=== PATIENT | female | born 1950 | race Caucasian/White ===

== ENCOUNTER 2023-09-15 20:50 | Observation (INO) | payer MEDICARE, SELFPAY ==
[2023-09-15] VITALS (16 sets, daily range): BP systolic 200–203; BP diastolic 88–100; PULSE 56–79; RESP 16–18; TEMP 36.4–36.5; O2SAT 96–100; BMI 23.5
--- NOTE | 2023-09-15 21:23 | ED.DIZZY ---
HPI - Dizziness General Time Seen by Provider: 21:23 Date Seen: 09/15/23 Chief Complaint: Dizziness/Vertigo Stated Complaint: Dizziness, nausea Time Seen by Provider: 09/15/23 21:12 Source: patient and RN notes reviewed Mode of arrival: ambulatory Limitations: no limitations History of Present Illness HPI Narrative: Simón is a very pleasant 73-year-old female with a history of hypothyroidism otherwise healthy who comes to the [place] [facility] [facility] for evaluation regarding nausea and feeling like the move room is moving around her. Corrie notes that she awoke this morning with symptoms of dizziness that she is having a hard time describing. She denies a spinning sensation and she denies the room spinning but states that she feels like she is moving. She notes that this lasted for approximately 2 hours this morning and went away and state away until this evening at approximately 0830. In regards to this morning she was unable to tell me if she got out of bed feeling that way or that nausea and dizziness happened after she had been up. She denied any visual changes chest pain shortness of breath. She slept for 2 hours and had resolution of her symptoms and decided to drive down to [place] for the [employer] festival that was occurring tonight. At 0815 patient had the sudden onset of shakiness feeling sweaty nausea and felt like she was moving. Again, she is having a hard time articulating what she is feeling as dizziness. She notes that she cannot move her head or at returns. Unfortunately at rest she still has the symptoms although not quite as severe. She denies any numbness or tingling that is new. She states that her great toes bilaterally have been somewhat numb for the past 6 months to a year. This is not new. She had she did not vomit but feels very nauseated. She notes that she did have a loose stool earlier this morning but it did not continue. Corrie notes that she did drive herself here this evening. She notes that she had had to just stare straight ahead and just listen to her GPS tell her what to do. She recognizes that this may not have been good judgment. She notes that she is having a hard time walking. Corrie did take a COVID test this morning not because she is been ill but because she has a positive exposure to a friend who had COVID. She denies sore throat runny nose cough cold congestion. Patient denies any recent trauma, anticoagulation use, this has never happened to her in the past. Related Data Home Medications ?Medication ?Instructions ?Recorded ?Confirmed aspirin 81 mg capsule 81 mg PO DAILY 09/15/23 09/15/23 fluoxetine .ROUTE 09/15/23 levothyroxine .ROUTE 09/15/23 Allergies Allergy/AdvReac Type Severity Reaction Status Date / Time No Known Drug Allergies Allergy Verified 09/15/23 21:46 PFSH PFSH Social History Smoking Status: Former smoker What tobacco products do you use: cigarettes How often do you have a drink containing alcohol: never AUDIT-C Alcohol total score: 0 Non-prescribed substance use: denies use Exam Narrative: Exam Narrative: Corrie is lying in a semi recumbent position in room 5 when I enter. She is moving her eyes to look at me only stating that if she moves her head it is much worse. She is very anxious. As I am asking her questions there was quite a delay in her response. However when she does respond the answers are appropriate, of normal speed and content. Her EOM is full and I do not note any nystagmus at rest or in the extremes of view. Pupils are equal round and reactive. Face symmetrical with eyebrow raise smile and tongue is midline. Neck is supple without lymphadenopathy. Heart with a regular rate and rhythm. Lungs are clear bilaterally. Abdomen soft. Moving all extremities. Able to lift all limbs off the bed. NIH SS 0. Const: Vital Signs, click to edit/add: Vital Signs - 24 hr 09/15/23 21:05 09/15/23 21:14 09/15/23 21:15 Temperature 97.6 F Pulse Rate 58 L 57 L Pulse Rate [Pulse Oximeter] 62 Respiratory Rate 18 Blood Pressure Blood Pressure [Ri ght Upper Arm] 201/94 H Pulse Oximetry 100 100 100 Oxygen Delivery Me thod Room Air 09/15/23 21:30 09/15/23 21:57 09/15/23 22:00 Temperature Pulse Rate 56 L 62 64 Pulse Rate [Pulse Oximeter] Respiratory Rate Blood Pressure 200/88 H Blood Pressure [Ri ght Upper Arm] Pulse Oximetry 100 99 99 Oxygen Delivery Me thod 09/15/23 22:01 09/15/23 22:15 09/15/23 22:30 Temperature Pulse Rate 64 63 65 Pulse Rate [Pulse Oximeter] Respiratory Rate Blood Pressure Blood Pressure [Ri ght Upper Arm] Pulse Oximetry 98 97 99 Oxygen Delivery Me thod 09/15/23 22:38 09/15/23 22:43 09/15/23 22:45 Temperature Pulse Rate 79 64 Pulse Rate [Pulse Oximeter] Respiratory Rate Blood Pressure 203/90 H Blood Pressure [Ri ght Upper Arm] Pulse Oximetry 97 99 Oxygen Delivery Me thod Documenting provider has reviewed patient's vital signs: yes Course Course ED Course: Patient presents with sudden onset of nausea, dizziness difficult to describe but not peer vertigo, persistent dizziness at rest at approximately 2015 hours. This is in the setting of high blood pressure of 201/94. Patient has no past history of stroke, atrial fibrillation, alcohol use or tobacco use. At this time must recognize that patient had similar type occurrence this morning lasting 2 hours but with complete resolution throughout the rest of the day until this evening. Will obtain CT/CTA, call stroke code because of the persistent dizziness at rest as well as the sudden onset. IV will be established, normal saline 500 mL bolus, Benadryl 12.5 mg IV will be given. Will also check EKG, troponin, place patient on monitoring coordinator, draw CBC, comprehensive panel, CRP and obtain urinalysis. Will also obtain COVID test. Differential diagnosis includes but is not limited to benign positional vertigo, stroke, labyrinthitis, vestibular dysfunction, cardiac arrhythmia, COVID,. Reevaluation(s) Reevaluation #1: Patient noted to be improved after fluids and Benadryl. She is able to move her had although slowly. Her responses seen faster and continue to be appropriate. I am able to examine her a little more closely. She does have 1 beat of nystagmus in the extremes of view but nothing at rest. Consultations Consultation #1: Had the pleasure of speaking with Dr. Zhane Richter. At this time symptoms are not consistent with acute stroke especially with the symptoms earlier this morning but given the sudden onset persisting symptoms at rest she has recommended CT/CTA this evening and MRI tomorrow morning. Would also recommend aspirin while awaiting MRI as long as results would warrant that. Vital Signs Vital signs: Initial Vital Signs Temperature 97.6 F 09/15/23 21:05 Temperature Source Temporal Artery Scan 09/15/23 21:05 Pulse Rate 62 09/15/23 21:05 Respiratory Rate 18 09/15/23 21:05 Blood Pressure 201/94 H 09/15/23 21:05 Blood Pressure Mean 129 H 09/15/23 21:05 Blood Pressure Position Sitting 09/15/23 21:05 Pulse Oximetry 100 09/15/23 21:05 Oxygen Delivery Method Room Air 09/15/23 21:05 Vital Signs Temperature 97.6 F 09/15/23 21:05 Pulse Rate 62 09/15/23 21:05 Respiratory Rate 18 09/15/23 21:05 Blood Pressure 201/94 H 09/15/23 21:05 Pulse Oximetry 100 09/15/23 21:05 Oxygen Delivery Method Room Air 09/15/23 21:05 Temperature 97.6 F 09/15/23 21:05 Pulse Rate 64 09/15/23 22:45 Respiratory Rate 18 09/15/23 21:05 Blood Pressure 203/90 H 09/15/23 22:38 Pulse Oximetry 99 09/15/23 22:45 Oxygen Delivery Method Room Air 09/15/23 21:05 Medications Administered Medications: Generic Name Dose Route Start Last Admin Trade Name Freq PRN Reason Stop Dose Admin Diphenhydramine HCl 12.5 mg 09/15/23 21:36 09/15/23 22:11 Diphenhydramine 50 Mg/Ml Inj IVP 12.5 mg Q6H PRN Administration Discontinued Medications Generic Name Dose Route Start Last Admin Trade Name Freq PRN Reason Stop Dose Admin Sodium Chloride 500 mls @ 500 mls/hr 09/15/23 21:36 09/15/23 22:07 0.9 % Sodium Chloride 500 Ml IV 09/15/23 22:35 500 mls/hr .Q1H ONE Administration MDM - Dizziness MDM Narrative Medical decision making narrative: 1. Dizziness-CT/CTA reassuring with no evidence of abnormality. This most likely represents an inner ear process but given the sudden onset of symptoms, persistent symptoms at rest we did treat this as a stroke code and I did speak with neurologist Dr. Richter. Patient was given baby aspirin this evening and is scheduled for MRI tomorrow morning. According to her chart she does take aspirin daily. Symptoms have improved with fluids and Benadryl. Patient notes that when she got up to use the restroom symptoms were still present but seem to be improved. EKG reassuring with normal sinus rhythm. No evidence of arrhythmia on monitoring coordinator. CRP and white count reassuring. No evidence of anemia electrolyte imbalance or kidney compromise. 2. Hypertension -this time around 200 systolic. Hospitalist is aware and we will continue to monitor at this time. Patient is not experiencing any chest pain, visual changes or shortness of breath. 3. Disposition -admit under the care of Dr. Benton. Plan on MRI tomorrow, this is been ordered for 0900 hours. Note patient was exposed to COVID in a friend. She has no symptoms at this time. COVID test is pending. Addendum: Patient has tested negative for COVID. Lab Data Attestation: I reviewed the patient's lab results. Labs: Lab Results 09/15/23 09/15/23 Range/Units 21:46 21:47 WBC 4.59 (4.50-11.00) K/uL RBC 4.01 (4.00-5.20) m/uL Hgb 12.1 (12.0-16.0) gm/dL Hct 37.5 (33.0-51.0) % MCV 94 (80-100) fL MCH 30 (26-34) pg MCHC 32 (32-36) gm/dL RDW Coeff of Chris 12.5 (11.5-15.5) % Plt Count 232 (140-440) K/uL Neut % (Auto) 55.8 (42.0-72.0) % Lymph % (Auto) 27.2 (20-44) % Wilson % (Auto) 10.2 (0.0-11.0) % Eos % (Auto) 5.0 (0.0-7.0) % Baso % (Auto) 1.1 (0.0-3.0) % Neut # (Auto) 2.56 (1.7-7.0) K/uL Lymph # (Auto) 1.25 (0.90-2.90) K/uL Wilson # (Auto) 0.50 (0.00-0.90) K/UL Eos # (Auto) 0.23 (0.00-0.50) K/uL Baso # (Auto) 0.05 (0.00-0.30) K/uL Abs Immat Gran (auto) 0.03 (0.00-0.30) K/uL Imm/Tot Granulo (auto) 0.7 % Sodium 135 (135-149) mmol/L Potassium 3.8 (3.6-5.1) mmol/L Chloride 106 (96-114) mmol/L Carbon Dioxide 25 (20-32) mmol/L Anion Gap 4 L (7-15) mEq/L BUN 15 (7-30) mg/dL Creatinine 0.6 (0.5-1.5) mg/dL Estimated Creat Clear 48.72 Estimated GFR 95 ml/min Glucose 125 H (60-115) mg/dL Calcium 8.9 (8.4-10.6) mg/dL Total Bilirubin 0.1 (0.1-1.5) mg/dL AST 25 (12-35) U/L ALT 15 (4-35) U/L Alkaline Phosphatase 58 (40-150) U/L C-Reactive Protein < 0.5 L (0.5-1.0) mg/dL Total Protein 6.6 (6.0-8.3) g/dL Albumin 4.0 (3.3-5.0) g/dL SARS-CoV-2 (PCR) Negative SARS-CoV-2 (Negative) Influenza Type A (PCR) Negative PCR FLU A (Negative) Influenza Type B (PCR) Negative PCR FLU B (Negative) RSV (PCR) Negative PCR RSV (Negative) Lab Acknowledgement Test Added Imaging Data CT scan - head: Attestation: I have reviewed the pertinent imaging results. My impression: I do not note any acute bleed or space-occupying lesion Radiologist's impression: Brain parenchyma, CSF spaces, and extra-axial spaces: The carlton-white differentiation is normal. No sign of mass, hemorrhage, or midline shift. No hydrocephalus. No extra-axial fluid collection. Skull base and calvarium: The visualized paranasal sinuses demonstrate no acute or significant findings. The mastoid air cells are clear. The visualized orbits are grossly unremarkable. No skull fracture. IMPRESSION: No evidence of an acute intracranial abnormality. Head and neck angio: Attestation: I have reviewed the pertinent imaging results. My impression: CTA Neck: No evidence of dissection or significant stenosis. CTA Brain: No large vessel occlusion, flow limiting stenosis, or large aneurysm. ECG Data Attestation: I personally reviewed and interpreted this ECG as follows: ECG interpretation date: 09/15/23 Interpretation: EKG by my read shows sinus rhythm at a rate of 62. No acute ST or T-wave changes are noted. QT and LA intervals within normal limits. Discharge Plan Discharge Clinical Impression: Dizziness Hypertension Qualifiers: Hypertension type: unspecified Qualified Code(s): I10 - Essential (primary) hypertension Patient Disposition: Admitted As Observation Condition: Improved
--- NOTE | 2023-09-15 21:36 | CRLHL7_ITS ---
For Patients: As a result of the Century Cures Act, medical imaging exams and procedure reports are released immediately into your electronic medical record. You may view this report before your referring provider. If you have questions, please contact your health care provider. INDICATION: Vertigo. TECHNIQUE: CT head without contrast. COMPARISON: None. FINDINGS: Brain parenchyma, CSF spaces, and extra-axial spaces: The carlton-white differentiation is normal. No sign of mass, hemorrhage, or midline shift. No hydrocephalus. No extra-axial fluid collection. Skull base and calvarium: The visualized paranasal sinuses demonstrate no acute or significant findings. The mastoid air cells are clear. The visualized orbits are grossly unremarkable. No skull fracture. IMPRESSION: No evidence of an acute intracranial abnormality. Please note that all CT scans at this facility use dose modulation, iterative reconstruction, and/or weight-based dosing when appropriate to reduce radiation dose to as low as reasonably achievable. Dictated by Jalil Roberts MD @ 09/15/2023 10:17:46 PM (Electronically Signed)
--- NOTE | 2023-09-15 21:36 | CRLHL7_ITS ---
For Patients: As a result of the Century Cures Act, medical imaging exams and procedure reports are released immediately into your electronic medical record. You may view this report before your referring provider. If you have questions, please contact your health care provider. INDICATION: Vertigo. TECHNIQUE: CTA head with contrast bolus tracking, 3D angiographic rendering using maximum intensity projection (MIP) and images permanently archived. FINDINGS: There is normal opacification of the intracranial vasculature. There is no large vessel occlusion. No aneurysm is identified. IMPRESSION: Unremarkable head CTA. Please note that all CT scans at this facility use dose modulation, iterative reconstruction, and/or weight-based dosing when appropriate to reduce radiation dose to as low as reasonably achievable. Dictated by Rashaun Palomo MD @ 09/16/2023 9:58:20 AM (Electronically Signed)
--- NOTE | 2023-09-15 21:36 | CRLHL7_ITS ---
For Patients: As a result of the Century Cures Act, medical imaging exams and procedure reports are released immediately into your electronic medical record. You may view this report before your referring provider. If you have questions, please contact your health care provider. INDICATION: Vertigo. TECHNIQUE: CTA neck with contrast bolus tracking, 3D angiographic rendering using maximum intensity projection (MIP) and images permanently archived. FINDINGS: There is minor carotid atherosclerosis. There is no significant carotid artery stenosis or dissection. There is no significant vertebral artery stenosis or dissection. The soft tissues of the neck are within normal limits. The cervical spine is in normal alignment. Degenerative changes are noted in the cervical spine. IMPRESSION: No significant carotid or vertebral artery stenosis or dissection. Please note that all CT scans at this facility use dose modulation, iterative reconstruction, and/or weight-based dosing when appropriate to reduce radiation dose to as low as reasonably achievable. Dictated by Rashaun Palomo MD @ 09/16/2023 9:59:47 AM (Electronically Signed)
[2023-09-15] MEDS: 0.9 % SODIUM CHLORIDE 500 ML 500 ML IV (22:07)
[2023-09-15] MEDS: diphenhydrAMINE 50 MG/ML inj 12.5 MG IVP (22:11)
[2023-09-15 22:15] LABS: Chloride* 106 mmol/L (96-114)
[2023-09-15 22:16] LABS: Potassium* 3.8 mmol/L (3.6-5.1); Sodium* 135 mmol/L (135-149)
[2023-09-15 22:18] LABS: Creatinine* 0.6 mg/dL (0.5-1.5); Est. Creatinine Clearance* 48.72; Estimated Glomerular Filt Rate 95 ml/min
[2023-09-15 22:19] LABS: Alanine Aminotransferase* 15 U/L (4-35); Alkaline Phosphatase* 58 U/L (40-150); Anion Gap 4 mEq/L (7-15); Aspartate Amino Transferase* 25 U/L (12-35); Bilirubin Total* 0.1 mg/dL (0.1-1.5); Blood Urea Nitrogen* 15 mg/dL (7-30); Calcium* 8.9 mg/dL (8.4-10.6); Carbon Dioxide* 25 mmol/L (20-32); Glucose* 125 mg/dL (60-115); Total Protein* 6.6 g/dL (6.0-8.3)
[2023-09-15 22:29] LABS: Basophils Absolute Auto 0.05 K/uL (0.00-0.30); Basophils Percent Auto 1.1 % (0.0-3.0); C Reactive Protein* < 0.5 mg/dL (0.5-1.0); Eosinophils Absolute Auto 0.23 K/uL (0.00-0.50); Hematocrit 37.5 % (33.0-51.0); Hemoglobin* 12.1 gm/dL (12.0-16.0); Immature Granulocytes Abs Auto 0.03 K/uL (0.00-0.30); Immature Granulocytes Pct Auto 0.7 %; Lymphocytes Absolute Auto 1.25 K/uL (0.90-2.90); Lymphocytes Percent Auto 27.2 % (20-44); Mean Corpuscular HGB Conc 32 gm/dL (32-36); Mean Corpuscular Hemoglobin 30 pg (26-34); Mean Corpuscular Volume 94 fL (80-100); Monocytes Percent Auto 10.2 % (0.0-11.0); Neutrophils Absolute Auto 2.56 K/uL (1.7-7.0); Neutrophils Percent Auto 55.8 % (42.0-72.0); Platelet Count* 232 K/uL (140-440); RDW Coefficient of Variation % 12.5 % (11.5-15.5); Red Blood Count 4.01 m/uL (4.00-5.20); White Blood Count* 4.59 K/uL (4.50-11.00)
--- OUTSIDE RECORDS SUMMARY | 2023-09-15 22:35 | XMS_ITS | Encounter Summary ---
Author Organization [place] Address [facility] [place] [address] Care Team Providers Care Terminal Press Operator Name Role Phone Chrystal Azul MD Primary Care Provider [phone] Chantel Wheatley BAND SPLICER Unavailable [phone] Jacki Blanchard MD Unavailable Jacki Blanchard MD Unavailable Chrystal Azul MD Unavailable [phone] Fili Graves MD Unavailable Naty Barrera MD Unavailable [phone] Xu Moody MD Unavailable Chrystal Azul MD Unavailable [phone] Fili Graves MD Unavailable Tonia Verde PA-C Unavailable Tonia Verde PA-C Unavailable Chrystal Azul MD Unavailable [phone] Heather Ragland DO Unavailable [phone] Heather Ragland DO Unavailable [phone] Fili Graves MD Unavailable Fili Graves MD Unavailable Ruth Em APRN, CNP Unavailable Tonia Verde PA-C Unavailable Ruth Em CLINICAL THERAPIST INSPECTOR HEATING AND REFRIGERATION Unavailable Katherine Zepeda DNP Primary Care Provider [phone] Katherine Zepeda DNP Unavailable [phone] Sarah Tong DO Unavailable Reason for Visit * Reason Onset Date Comments Panel Management 07/01/2015 Pap Encounter Details Date Type Department Care Team (Late st Contact Info) Description 07/01/[address] [phone] Chrystal Azul MD [facility] [address] [address] Panel Management (Pap) Social History Tobacco Use Types Packs/Day Years Used Date Smoking Tobacco: Former Cigarettes 1 - 11/23/2005 Smokeless Tobacco: Never Alcohol Use Standard Drinks/Week Comments No 0 (1 standard drink = 0.6 oz pur e alcohol) 07/19/01 quit Sex and Gender Information Value Date Recorded Sex Assigned at Female 07/14/2020 10:35 AM CDT Gender Identity Female 12/25/2019 6:50 PM MANAGER COUNTRY Sexual Orientation Not on file documented as of this encounter Miscellaneous Notes * Telephone Encounter - Briana Baker CMA - 07/01/2015 3:56 PM CDT Patient will call clinic back to schedule pap. Briana Baker MA documented in this encounter Plan of Treatment Not on file documented as of this encounter Visit Diagnoses Not on filedocumented in this encounter Additional Health Concerns Infection Onset Date Last Indicated Resolved Time Rule Out COVID-19 08/01/2019 08/01/2019 08/02/2019 11:10 AM CDT Assessment Noted Time PHQ-9 Depression Total Score: 1 02/07/20 15 7:35 AM MANAGER COUNTRY documented as of this encounter Care Teams Terminal Press Operator Relationship Specialty Start Date End Date Chrystal Azul MD [address] [address] PCP - General 08/26/02 08/10/22 Jacki Blanchard MD [address] [address] PCP - Assigned PCP 10/08/17 04/24/18 Katherine Zepeda DNP [address] [address] PCP - General Nurse Practitioner Primary Care 08/11/22 Chantel Wheatley, BAND SPLICER Software Intern 06/17/16 10/31/16 Jacki Blanchard MD [address] [address] Assigned PCP 10/08/17 05/12/18 Chrystal Azul MD [address] [address] Assigned PCP 05/13/18 12/21/19 Fili Graves MD [address] [place] [address] Assigned PCP 01/12/20 01/09/21 Naty Barrera MD [address] [place] [id number] Assigned PCP 12/22/19 01/11/20 Xu Moody MD [address] [place], [place] [address]Y[place] [address] Assigned Sleep Provider 07/26/20 02/25/22 Chrystal Azul MD [address] [address] Assigned PCP 01/10/21 02/27/21 [place] [address] [place] [address] Assigned PCP 02/28/21 07/10/21 Tonia Verde PA-C [address] [place] [address] Physician Window Trimmer Apprentice Urology 05/11/21 Tonia Verde PA-C [address] [place] [address] Assigned OBGYN Provider 05/30/21 04/08/22 Chrystal Azul MD [address] [address] Assigned PCP 07/11/21 11/26/21 Heather Ragland DO [address] [place] [address] Cardiovascular Disease 08/27/21 Heather Ragland DO [address] [place] [address] Assigned Heart and Vascular Provider 10/02/21 04/13/23 Fili Graves MD [address] [facility] [place] [address] Assigned PCP 11/27/21 02/04/22 Fili Graves MD [address] [facility] [place] [address] Assigned PCP 04/16/22 08/19/22 Ruth Em APRN INSPECTOR HEATING AND REFRIGERATION [address] [facility] [address] [facility] [address] [place] [address] Assigned OBGYN Provider 04/09/22 06/17/22 Tonia Verde PA-C [address] [facility] [address] [place] [address] Assigned OBGYN Provider 06/18/22 06/24/22 Ruth Em APRN INSPECTOR HEATING AND REFRIGERATION [address] [facility] [address] [place] [address] Assigned OBGYN Provider 06/25/22 Katherine Zepeda DNP [address] [place] [address] Assigned PCP 08/20/22 01/27/23 Sarah Tong DO [address] [place] [address] Assigned PCP 01/28/23 documented as of this encounter
--- OUTSIDE RECORDS SUMMARY | 2023-09-15 22:35 | XMS_ITS | Encounter Summary ---
Author Organization [facility] Address [address] [place] [address] Care Team Providers Care Two Way Radio Installer Name Role Phone Tonia Verde PA-C Unavailable Heather Ragland DO Unavailable [phone] Heather Ragland DO Unavailable [phone] Ruth Em APRN CHECK WRITER Unavailable Katherine Zepeda DNP Primary Care Provider [phone] Katherine Zepeda DNP Unavailable [phone] Sarah Tong DO Unavailable Reason for Visit * Reason Onset Date Comments Letter for School/Work 11/21/2022 Encounter Details Date Type Department Care Team (Late st Contact Info) Description 11/21/2022 Telephone [facility] [address] [place] [address] Sarah Tong DO [address] [place] [address] Letter for School/Work Social History Tobacco Use Types Packs/Day Years Used Date Smoking Tobacco: Former Cigarettes Q uit: 11/23/1985 Smokeless Tobacco: Never Alcohol Use Standard Drinks/Week Comments No 0 (1 standard drink = 0.6 oz pur e alcohol) 07/19/01 quit PHQ-2 Answer Date Recorded PHQ-2 Score 0 11/15/2022 Adolescent Education Answer Date Record ed Getting School Help Needed Not on file 11/14 Food Insecurity Answer Date Recorded Within the past 12 months, d id you worry that your food would run out before you got money to buy more? No 11/15/2022 Within the past 12 months, d id the food you bought just not last and you didn? t have money to get more? No 11/15/2022 Housing Stability Answer Date Recorded Do you have housing? (Meera velázquez is defined as stable permanent housing and does not include staying ouside in a car, in a tent, in an abandoned building, in an overnight half-way, or couch-surfing.) Yes 11/15/2022 Are you worried about losing your housing? No 11/15/2022 Financial Resource Strain Answer Date R ecorded Within the past 12 months, h ave you or your family members you live with been unable to get utilities (heat, electricity) when it was really needed? No 11/15/2022 Transportation Needs Answer Date Record ed Within the past 12 months, h as lack of transportation kept you from medical appointments, getting your medicines, non-medical meetings or appointments, work, or from getting things that you need? No 11/15/2022 Interpersonal Safety Answer Date Record ed Do you feel physically and e motionally safe where you currently live? Yes 11/15/2022 Within the past 12 months, h ave you been hit, slapped, kicked or otherwise physically hurt by someone? No 11/15/2022 Within the past 12 months, h ave you been humiliated or emotionally abused in other ways by your partner or ex-partner? No 11/15/2022 Sex and Gender Information Value Date Recorded Sex Assigned at Female 07/14/2020 10:35 AM CDT Gender Identity Female 12/25/2019 6:50 PM [employer] Sexual Orientation Not on file COVID-19 Exposure Response Date Recorded In the last 10 days, have yo u been in contact with someone who was confirmed or suspected to have Coronavirus/COVID-19? No / Unsure 11/15/2022 11:40 AM CDT documented as of this encounter Miscellaneous Notes * Telephone Encounter - Sary Sharpe RN - 11/21/2022 3:19 PM CDT LM to inform pt about this letter on [facility] and gave the rest of Dr. Tong's message. MATEO [place] * Telephone Encounter - Sarah Tong DO - 11/21/2022 2:57 PM CDT Absolutely- thank you for the pended letter. Signed. If symptoms not better by the end of this week, I would love to see her again (me or Katherine would be ok) to see if there is something more that we need to do to evaluate her pain. Sarah Tong DO Internal Medicine - Pediatrics Physician [facility] * Telephone Encounter - Sary Sharpe RN - 11/21/2022 2:11 PM CDT 11/15/22 was [address] OV with Dr. Tong. Pended letter. MATEO [place] * Telephone Encounter - Mariya Whitt - 11/21/2022 1:17 PM CDT Patient wondering Dr. Tong could write a letter note for work that patient should stay home for this week. Patient still not recovering and feels that its inappropriate to return to work this week. Patient only works two days a week which is on Monday's and Monday'. Willing to come in for appointment if requires.. Will forward message to provider if any questions please call patient. documented in this encounter Plan of Treatment Not on file documented as of this encounter Visit Diagnoses Not on filedocumented in this encounter Additional Health Concerns Assessment Noted Time PHQ-9 Depression Total Score: 3 11/16/19 11:38 AM CDT documented as of this encounter Care Teams Two Way Radio Installer Relationship Specialty Start Date End Date Katherine Zepeda DNP [address] [facility] [address] [place] [address] PCP - General Nurse Practitioner Primary Care 08/11/22 Tonia Verde PA-C [address] [place] [address] Physician Technical Sales Manager Urology 05/11/21 Hetaher Ragland, DO [address] [place] [id number] Cardiovascular Disease 08/27/21 Heather Ragland DO [address] [place] [address] Assigned Heart and Vascular Provider 10/02/21 04/13/23 Ruth Em APRN CHECK WRITER [address] [place] [id number] Assigned OBGYN Provider 06/25/22 Katherine Zepeda DNP [address] [address] Assigned PCP 08/20/22 01/27/23 Sarah Tong DO [address] [address] Assigned PCP 01/28/23 documented as of this encounter
--- OUTSIDE RECORDS SUMMARY | 2023-09-15 22:35 | XMS_ITS | Clinical Summary ---
Author Organization [place] Address [facility] [place] [address] Care Team Providers Care Equipment Operator Ware[employer] Name Role Phone Tonia Verde PA-C Unavailable Heather Ragland DO Unavailable [phone] Ruth Em APRN SALES SECRETARY Unavailable Katherine Zepeda DNP Primary Care Provider Sarah Tong DO Unavailable Allergies Active Allergy Reactions Criticality Noted Date Comments No Known Allergies 07/25/2003 Medications Medication Sig Dispensed Refills Start Date End Date Status MULTI-VITAMIN OR TABS one tablet daily 0 07/25/2003 Active GLUCOSAMINE CHONDRO COMPLEX 500-400 MG OR TABS 1 tab once or twice daily 0 10/28/2004 Active OMEGA 3 1000 MG OR CAPS 0 12/06/2007 Active ASPIRIN 81 MG OR TABS ONE DAILY 100 3 12/06/2007 Active melatonin 3 MG tablet Take by mouth nightly as needed Active fluvoxaMINE (LUVOX) 100 MG tablet Take 1 tablet by mouth daily 1 06/25/2018 Active cetirizine HCl 10 MG CAPS Take 1 capsule (10 mg) by mouth daily 11/26/2018 Active Theanine 100 MG CAPS Acti ve estradiol (ESTRACE VAGINAL) 0.1 MG/GM vaginal creamIndications:Urg e incontinence of urine Apply small amount to the vaginal opening and urethra M, W, F @ h.s. 42.5 g 3 05/24/2021 Active albuterol (PROAIR HFA/PROVENTIL HFA/VENTOLIN HFA) 108 (90 Base) MCG/ACT inhalerIndications:F ormer smoker,Environmental allergies Inhale 2 puffs into the lungs every 6 hours as needed for shortness of breath or wheezing 8.5 g 08/11/2022 Active mometasone-formotero l (DULERA) 100-5 MCG/ACT inhalerIndications:D yspnea on exertion Inhale 2 puffs into the lungs 2 times daily 13 g 1 08/11/2022 Active Additional Information Patient not taking.Reported on 01/25/2023 levothyroxine (SYNTHROID/LEVOTHROI D) 50 MCG tabletIndications:Hy pothyroidism, unspecified type Take 1 tablet (50 mcg) by mouth daily 90 tablet 3 11/16/2022 Active Active Problems Problem Noted Date Diagnosed Date Vitamin D deficiency 01/25/2023 Normocytic anemia 01/25/2023 Alcohol dependence in remission 11/15/2022 Pelvic somatic dysfunction 06/29/2021 Urge incontinence of urine 06/29/2021 Acquired hypothyroidism 11/26/2018 Abnormal thyroid function test 11/25/2018 Esophageal reflux 07/25/2003 Resolved Problems Problem Noted Date Diagnosed Date Resolved Date Hip pain, left 12/26/2019 11/15/2022 FRANK (obstructive sleep apnea) 05/03/2018 11/15/2022 Overview: Uses CPAP Skin lesion 06/21/2013 11/15/2022 Advanced directives, counseling/discussion 01/24/2011 08/07/2023 Overview: Discussed advance care planning with patient; information given to patient to review. 01/24/2011 CARDIOVASCULAR SCREENING; LD L GOAL LESS THAN 130 06/28/2009 07/13/2017 Panic disorder without agoraphobia 07/25/2003 11/15/2022 Overview: Followed by Rodney Santiago Immunizations Name Administration Dates Next Due COVID-19 Vaccine (Reina) 04/28/2020 Flu 65+ Years 12/20/2017 Influenza (H1N1) 12/24/2008 Influenza (High Dose) 3 jennifer nt vaccine 12/14/2018,12/20/2016 Influenza (IIV3) PF 01/06/2010 Influenza Vaccine 65+ (FLUAD) 12/11/2020 Influenza Vaccine 65+ (Fluzone HD) 12/07/2019 Influenza Vaccine >6 months,quad, PF ,11/20/2014,12/26/2013,2012 Pneumo Conj 13-V (2010&after) 08/19/2015 Pneumococcal 23 valent 07/14/2017 TD,PF 7+ (Tenivac) 06/04/1999 TDAP Vaccine (Adacel) 06/10/2016 Zoster recombinant adjuvante d (SHINGRIX) 09/27/2017,07/14/2017 Family History Medical History Relation Comments Diabetes Brother 4 age 45 Bladder Cancer Father Prostate Cancer Father still living Cancer Mother ovarian CA, dece ased at 44 y.o. Thyroid Disease Mother Anesthesia Reaction Paternal Grandfather Parathyroid Disorders Sister 1 Relation Status Comments Brother 1 Alive Brother 2 Alive Brother 3 (Age 46) car accident Brother 4 Father Mother (Age 45) ovarian or [employer] claudy cancer Paternal Grandfather Sister 1 Alive Sister 2 Alive Son Alive Social History Tobacco Use Types Packs/Day Years Used Date Smoking Tobacco: Former Cigarettes Q uit: 11/23/1985 Smokeless Tobacco: Never Tobacco Cessation:Counseling Given: Not Answered Alcohol Use Standard Drinks/Week Comments No 0 [...] you got money to buy more? No 01/24/2023 Within the past 12 months, d id the food you bought just not last and you didn? t have money to get more? No 01/24/2023 Housing Stability Answer Date Recorded Do you have housing? (Ginoin g is defined as stable permanent housing and does not include staying ouside in a car, in a tent, in an abandoned building, in an overnight custodial, or couch-surfing.) Yes 01/24/2023 Are you worried about losing your housing? No 01/24/2023 Financial Resource Strain Answer Date R ecorded Within the past 12 months, h ave you or your family members you live with been unable to get utilities (heat, electricity) when it was really needed? No 01/24/2023 Transportation Needs Answer Date Record ed Within the past 12 months, h as lack of transportation kept you from medical appointments, getting your medicines, non-medical meetings or appointments, work, or from getting things that you need? No 01/24/2023 Interpersonal Safety Answer Date Record ed Do [...] CDT Gender Identity Female 12/25/2019 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 PUBLISHER Sexual Orientation Not on file Last Filed Vital Signs Vital Sign Reading Time Taken Comments Blood Pressure 124/78 01/25/2023 1:01 PM ASSOCIATE PUBLISHER Pulse 61 01/25/2023 1:01 PM ASSOCIATE PUBLISHER Temperature 36.4 ??C (97.5 ??F) 01/25/2023 1:01 PM CS T Respiratory Rate 20 01/25/2023 1:01 PM ASSOCIATE PUBLISHER Oxygen Saturation 99% 01/25/2023 1:01 PM ASSOCIATE PUBLISHER Inhaled Oxygen Concentration - - Weight 67.5 kg (148 lb 14.4 oz) 01/25/2023 1:01 PM ASSOCIATE PUBLISHER Height 167.5 cm (5' 5.95) 01/25/2023 1:01 PM CS T Body Mass Index 24.07 01/25/2023 1:01 PM ASSOCIATE PUBLISHER Plan of Treatment Health Maintenance Due Date Last Done Comments CT COLONOGRAPHY 1950 FLEX SIG 1950 sDNA (Cologuard) 1950 RSV VACCINE ( & 60+) (1 - 1-dose 60+ series) 2010 MEDICARE ANNUAL WELLNESS VISIT 06/06/2015 FIT 11/27/2019 11/26/2018, 11/2 02/2016, 12/15/2011 ADVANCE CARE PLANNING 07/14/2022 07/14/2017 , 12/12/2011, 01/24/2011, Additional history exists PHQ-2 (once per calendar year) 2023 11/15/2022, 11/15/2022, 08/11/2022, Additional history exists COVID-19 Vaccine ( season) 2023 12/13/2022, 12/03/2021, 12/11/2020, Additional history exists TAMARA ASSESSMENT 05/16/2023 11/15/2022, 02/0 03/2022, 2019, Additional history exists PHQ-9 05/16/2023 11/15/2022, 02/0 03/2022, 2019, Additional history exists FALL RISK ASSESSMENT 08/12/2023 08/11/2022, 05/04/19 19 INFLUENZA VACCINE (#1) 2023 , 12/03/2021, 12/11/2020, Additional history exists ANNUAL REVIEW OF HM ORDERS 11/16/2023 11/15/2022 CMP 11/16/2023 11/15/2022, 07/22, 11/26/2018, Additional history exists TSH W/FREE T4 REFLEX 01/26/2024 01/25/2023, 11/15/2022, 11/15/2022, Additional history exists MAMMO SCREENING 03/10/2025 03/10/2023, 02/20, 12/06/2018, Additional history exists GLUCOSE 11/15/2025 11/15/2022, 07/22, 11/26/2018, Additional history exists DTAP/TDAP/TD IMMUNIZATION (2 - Td or Tdap) 06/10/2026 06/10/2016, 06/04/1999 LIPID 08/12/2027 08/11/2022, 09/11/2015 COLONOSCOPY 05/24/2032 05/24/2022, 05/24/2022 COLORECTAL CANCER SCREENING 05/24/2032 DEXA 03/07/2038 03/07/2023 HEPATITIS C SCREENING Completed 09/11/2015 Pneumococcal Vaccine: 65+ Years Completed 07/14/2017, 08/19/2015 ZOSTER IMMUNIZATION Completed 09/27/2017, 8 HPV IMMUNIZATION Aged Out No longer e ligible based on patient's age to complete this topic IPV IMMUNIZATION Aged Out No longer e ligible based on patient's age to complete this topic MENINGITIS IMMUNIZATION Aged Out No l onger eligible based on patient's age to complete this topic RSV MONOCLONAL ANTIBODY Aged Out No l onger eligible based on patient's age to complete this topic Procedures Procedure Name Priority Date/Time Associated Diagnosis Comments MA DIAGNOSTIC LEFT W/ RICHARD Routine 03/10/2023 2:14 PM ASSOCIATE PUBLISHER Abnormal mammogram of left breast PA DEXA BONE DENSITY, >=1 SITE, AXIAL SKELETON Routine 03/07/2023 11:23 AM ASSOCIATE PUBLISHER Encounter for osteoporosis screening in asymptomatic postmenopausal patient TSH WITH FREE T4 REFLEX Routine 01/25/2023 1:40 PM ASSOCIATE PUBLISHER Hypothyroidism, unspecified type COMPREHENSIVE METABOLIC PANEL Routine 11/15/2022 2:53 PM CDT Acute bilateral low back pain without sciatica LIPID REFLEX TO DIRECT LDL PANEL Routine 08/11/2022 10:59 AM CDT Lipid screening COLONOSCOPY Routine 05/24/2022 9:54 AM CDT FECAL COLORECTAL CANCER SCREEN FIT Routine 11/26/2018 9:00 AM CDT Screen for colon cancer HEPATITIS C ANTIBODY Routine 09/11/2015 8:29 AM CDT Need for hepatitis C screening test from Last 3 Months or Most Recently Relevant to Health Maintenance Results * MA Diagnostic Left w/Richard (03/10/2023 2:14 PM ASSOCIATE PUBLISHER) Anatomical Region Laterality Modality Breast Bilateral Mammography Impressions 03/10/2023 3:10 PM ASSOCIATE PUBLISHER IMPRESSION: BI-RADS CATEGORY: 1 - ??Negative. RECOMMENDED FOLLOW-UP: Routine yearly mammography beginning at age 40 or as discussed with your provider. The finding and recommendation were discussed with the patient at the time of evaluation. The patient was given the results of the examination. I have personally reviewed the examination and initial interpretation and I agree with the findings. ANICETO CRAMER MD Narrative 03/10/2023 3:10 PM ASSOCIATE PUBLISHER Examinations: MA DIAGNOSTIC LEFT W/ RICHARD, US BREAST LEFT LIMITED 1-3 QUADRANTS, 03/10/2023 2:14 PM Comparisons: 03/07/2023, 12/06/2018, 07/24/2015 History: Screening callback left breast BREAST DENSITY: There are scattered areas of fibroglandular density. Findings: ?? Mammogram: Additional mammographic views of the left breast to further evaluate possible superior asymmetry show no suspicious abnormality. Ultrasound: Targeted left breast ultrasound evaluation was performed by the technologist and radiologist. At the 1:00 position, 6 cm from nipple, there is only normal-appearing breast tissue. No suspicious findings. Sarah Tong DO IMG MAMMOGRAP HY ORDERABLES * DEXA HIP/PELVIS/SPINE - Future (03/07/2023 11:23 AM ASSOCIATE PUBLISHER) Anatomical Region Laterality Modality Dexa Bone Mineral Den sity Narrative 03/07/2023 10:47 PM ASSOCIATE PUBLISHER Images from the original [place] [address] Phone: ?? Fax: Impression The most negative and valid T-score of -1.5 at the level of the left femoral neck corresponds with low bone density according to WHO criteria for postmenopausal females and men age 50 and over. Results Lumbar spine L1-L3 T-score -0.8 , BMD 1.072 g/cm2. Left Femoral ??neck T-score -1.5 , BMD 0.832 g/cm2. Left Total hip T-score -0.9 , BMD 0.899 g/cm2. Right Femoral neck T-score -1.4, BMD ??0.840 g/cm2. Right Total hip T-score -0.9 , BMD ??0.891 g/cm2. Interval change No prior study available for comparison. Fracture risk The estimated 10-year risk for a major osteoporotic fracture is 16.3% and for a hip fracture is 2.7%. FRAX was calculated based on information provided by the patient on the DXA questionnaire. FRAX may not accurately predict risk in patient on bisphosphonate and should not be used to assess the reduction in fracture risk in patients on treatment The risk of osteoporotic fracture increases approximately 2-fold for each 1.0 SD decrease in T-score. Low bone density is not the only risk factor for fracture; consider factors such as patient's age, fall risk, injury risk, previous osteoporotic fracture, family history of osteoporosis, etc. ?? Repeat For patients eligible for Medicare, routine testing is allowed once every 2 years. Testing frequency can be increased for patients on corticosteroids. Clinical correlation recommended Technical quality Satisfactory. Abnormal vertebrae may be excluded from analysis if there is more than a 1.0 T-score difference between the vertebrae in question and adjacent vertebrae. Note the wide range in BMD values and T-scores within the lumbar spine. In the circumstances, the lumbar spine is represented by L1-L3 Principal result sample dye mixer: Martínez Segura MD, [facility] Division of Endocrinology and Diabetes ?? Department of Medicine References: Ref. 1. WHO categories: ? T-score > -1.0 ??= normal ? . ? T-score -1.0 to -2.5 = low bone density T-score < -2.5 = osteoporosis ?. Ref. 2. 2015 ISCD official position statements: ??www.iscd.org. Ref. 3. ??Today's examination is compared to the technically similar prior study of the total hip and femur if available. Only changes deemed likely to be significant based on historical data are reported. According to the ISCD position statements, total hip rather than femoral neck regions are to be compared because larger areas give better precision. LSC = least significant changes at the [facility] (historical data) AP spine = ??0.032 g/cm2 ??(08/15/2006). ??Precision assessment for combinations of fewer than 4 vertebrae cannot presently be calculated Left hip = 0.029 g/cm2 ??(08/04/2006) Right hip = 0.018 g/cm2 ??(08/04/2006) Left mid radius = 0.043 g/cm2 ??(08/15/2006) Bilateral hip LSC is not known Please note that the differential diagnosis of increase in bone density at the lumbar spine includes improvement due to pharmacotherapy vs inter-current progression of spine degeneration or fracture. ?? Ref. 4 Fracture risk is calculated in patients aged 40 to 90 years old with low bone density not on osteoporosis treatment. A 10 year fracture risk of 3% and higher for hip fracture and 20% and higher for major osteoporotic fracture is considered higher than acceptable risk and might be an indication for medical treatment. Ref. 5. ??By definition, osteoporosis may be diagnosed in the presence or with the history of a low trauma or fragility fracture. ??Fragility and low trauma fracture is defined as a fracture resulting from the force of a fall from a standing height or less or a bone that breaks under conditions that would not cause a normal bone to break. ?? Ref. 6. NOF Physician's Guideline Website address: ??www.nof.org. Sarah Tong DO IMG DEXA VERONICA JALLOH * TSH with free T4 reflex (01/25/2023 1:40 PM ASSOCIATE PUBLISHER) Pathologist [facility] TSH 1.79 0.30 - 4.20 uIU/mL 01/26/2023 9:24 AM ASSOCIATE PUBLISHER [facility] Blood STRUCTURE OF LEFT UPPER LIMB / Unknown Venipuncture / Unknown 01/25/2023 1:40 PM ASSOCIATE PUBLISHER 01/25/2023 1:40 PM ASSOCIATE PUBLISHER Sarah Tong DO LAB - BLOOD O RDERABLES [facility] [place] [facility] Lab [address] [facility], [address] [place] [address], [place] [phone] * Comprehensive metabolic panel (BMP + Alb, Alk Phos, ALT, AST, Total. Bili, TP) (11/15/2022 2:53 PM CDT) Sodium 139 135 - 145 mmol/L 11/15/2022 10:34 PM CDT [facility] Comment:Reference intervals for this test were updated on 11/15/2022 to more accurately reflect our healthy population. There may be differences in the flagging of prior results with similar values performed with this method. Interpretation of those prior results can be made in the context of the updated reference intervals. Potassium 4.9 3.4 - 5.3 mmol/L 11/15/2022 10:34 PM CDT [facility] Carbon Dioxide (CO2) 24 22 - 29 mmol/L 11/15/2022 10:34 PM CDT [facility] Anion Gap 10 7 - 15 mmol/L 11/15/2022 10:34 PM CDT [facility] Urea Nitrogen 16.4 8.0 - 23.0 mg/dL 11/15/2022 10:34 PM CDT [facility] Creatinine 0.72 0.51 - 0.95 mg/dL 11/15/2022 10:34 PM CDT [facility] GFR Estimate 88 >60 mL/min/1. 73m2 11/15/2022 10:34 PM CDT [facility] Calcium 9.5 8.8 - 10.2 mg/dL 11/15/2022 10:34 PM CDT [facility] Chloride 105 98 - 107 mmol/L 11/15/2022 10:34 PM CDT [facility] Glucose 87 70 - 99 mg/dL 11/15/2022 10:34 PM CDT [facility] Alkaline Phosphatase 54 35 - 104 U/L 11/15/2022 10:34 PM CDT [facility] AST 34 0 - 45 U/L 11/15/2022 10:34 PM CDT [facility] Comment:Reference intervals for this test were updated on 08/01/2022 to more accurately reflect our healthy population. There may be differences in the flagging of prior results with similar values performed with this method. Interpretation of those prior results can be made in the context of the updated reference intervals. ALT 19 0 - 50 U/L 11/15/2022 10:34 PM CDT [facility] Comment:Reference intervals for this test were updated on 08/01/2022 to more accurately reflect our healthy population. There may be differences in the flagging of prior results with similar values performed with this method. Interpretation of those prior results can be made in the context of the updated reference intervals. Protein Total 6.8 6.4 - 8.3 g/dL 11/15/2022 10:34 PM CDT [facility] Albumin 4.0 3.5 - 5.2 g/dL 11/15/2022 10:34 PM CDT [facility] Bilirubin Total <0.2 <=1.2 mg/dL 11/15/2022 10:34 PM CDT [facility] Blood STRUCTURE OF LEFT UPPER LIMB / Unknown Venipuncture / Unknown 11/15/2022 2:53 PM CDT 11/15/2022 2:53 PM CDT Sarah Tong DO LAB - BLOOD O RDERABLES [facility] [place] [facility] Lab [address] [facility], [address] [phone], [facility] [phone] * (ABNORMAL) Lipid panel reflex to direct LDL Non-fasting (08/11/2022 10:59 AM CDT) Pathologist [facility] Cholesterol 245(H) <200 mg/dL 08/11/2022 4:48 PM CDT [facility] Triglycerides 146 <150 mg/dL 08/11/2022 4:48 PM CDT [facility] Direct Measure HDL 76 >=50 mg/dL 08/11/2022 4:48 PM CDT [facility] LDL Cholesterol Calculated 140(H) <=100 mg/dL 08/11/2022 4:48 PM CDT [facility] Non HDL Cholesterol 169(H) <130 mg/dL 08/11/2022 4:48 PM CDT [facility] Blood STRUCTURE OF RIGHT UPPER LIMB / Unknown Venipuncture / Unknown 08/11/2022 10:59 AM CDT 08/11/2022 11:00 AM CDT Narrative [facility] - 08/11/2022 4:48 PM CDT Cholesterol Desirable: ??<200 mg/dL Triglycerides Normal: ??Less than 150 mg/dL Borderline High: ??150-199 mg/dL High: ??200-499 mg/dL Very High: ??Greater than or equal to 500 mg/dL Direct Measure HDL Female: ??Greater than or equal to 50 mg/dL Male: ??Greater than or equal to 40 mg/dL LDL Cholesterol Desirable: ??<100mg/dL Above Desirable: ??100-129 mg/dL Borderline High: ??130-159 mg/dL High: ??160-189 mg/dL Very High: ??>= 190 mg/dL Non HDL Cholesterol Desirable: ??130 mg/dL Above Desirable: ??130-159 mg/dL Borderline High: ??160-189 mg/dL High: ??190-219 mg/dL Very High: ??Greater than or equal to 220 mg/dL Katherine Zepeda DNP LAB - BLOOD ORDERABL ES [facility] Core Lab [address] [facility], [address] [place] [id number], [facility] [phone] * COLONOSCOPY (05/24/2022 9:54 AM CDT) COLONOSCOPY [place] [address] ??[place], [place] ??[address] Patient Name: Corrie Simmons ?Procedure Date: 05/24/2022 9:54 AM ? Date of : 1950 ?Admit Type: Outpatient Age: 71 ? Room: [place] [address] Note Status: Finalized ?Attending MD: JARVIS RODARTE MD Instrument Name: [id number] Peds Colon Procedure: ?Colonoscopy Indications: ?Positive fecal immunochemical test Providers: ?JARVIS RODARTE MD, Bethany Almaraz RN Patient Profile: ?Refer to note in patient chart for documentation of ?history and physical. Denied FH of CRC,no GI ?symptoms currently. Referring MD: ? FENG AZUL MD Medicines: ?Midazolam 2 mg IV, Fentanyl 100 micrograms IV Complications: ?No immediate complications. Procedure: ?Pre-Anesthesia Assessment: ?- Prior to the procedure, a History and Physical ?was performed, and patient medications and ?allergies were reviewed. The patient is competent. ?The risks and benefits of the procedure and the ?sedation options and risks were discussed with the ?patient. All questions were answered and informed ?consent was obtained. Patient identification and ?proposed procedure were verified by the physician. ?Mental Status Examination: alert and oriented. ?Airway Examination: normal oropharyngeal airway and ?neck mobility. Respiratory Examination: clear to ?auscultation. CV Examination: normal. Prophylactic ?Antibiotics: The patient does not require ?prophylactic antibiotics. Prior Anticoagulants: The ?patient has taken no anticoagulant or antiplatelet ?agents. ASA Grade Assessment: III - A patient with ?severe systemic disease. After reviewing the risks ?and benefits, the patient was deemed in ?satisfactory condition to undergo the procedure. ?The anesthesia plan was to use moderate sedation / ?analgesia (conscious sedation). Immediately prior ?to administration of medications, the patient was ?re-assessed for adequacy to receive sedatives. The ?heart rate, respiratory rate, oxygen saturations, ?blood pressure, adequacy of pulmonary ventilation, ?and response to care were monitored throughout the ?procedure. The physical status of the patient was ?re-assessed after the procedure. ?After obtaining informed consent, the colonoscope ?was passed under direct vision. Throughout the ?procedure, the patient's blood pressure, pulse, and ?oxygen saturations were monitored continuously. The ?peds colonoscope 514 was introduced through the ?anus and advanced to the cecum, identified by ?appendiceal orifice and ileocecal valve. The ?colonoscopy was performed without difficulty. The ?patient tolerated the procedure well. The quality ?of the bowel preparation was adequate. The ?ileocecal valve, appendiceal orifice, and rectum ?were photographed. ? Findings: ? The perianal and digital rectal examinations were normal. Pertinent ? negatives include normal sphincter tone. ? The colon (entire examined portion) appeared normal. There was a sharp ? angulation at the sigmoid colon with segment of severe diverticulosis. ? Water immersion and position change was required to advance the scope. ? A few diverticula were found in the sigmoid colon, descending colon and ? ascending colon. ? The retroflexed view of the distal rectum and anal verge was normal and ? showed no anal or rectal abnormalities. ? Impression: ? - The entire examined colon is normal. ?- Diverticulosis in the sigmoid colon, in the ?descending colon and in the ascending colon. ?- The distal rectum and anal verge are normal on ?retroflexion view. ?- No specimens collected. Recommendation: ? - Repeat colonoscopy in 10 years for screening ?purposes. ?- Patient has a contact number available for ?emergencies. The signs and symptoms of potential ?delayed complications were discussed with the ?patient. Return to normal activities tomorrow. ?Written discharge instructions were provided to the ?patient. ? JARVIS RODARTE MD 05/24/2022 10:43:29 AM I was physically present for the entire viewing portion of the exam. JARVIS RODARTE MD Number of Addenda: 0 Note Initiated On: 05/24/2022 9:54 AM Scope Withdrawal Time: 0 hours 15 minutes 59 seconds Total Procedure Duration: 0 hours 33 minutes 20 seconds Estimated Blood Loss: ? Estimated blood loss: none. Scope In: 10:05:02 AM Scope Out: 10:38:22 AM RADIOLOGY RESULTS 05/24/2022 9:54 AM CDT Feng Azul MD PROCEDURES Performing Organization Address City/[facility] Co de Phone Number RADIOLOGY RESULTS * (ABNORMAL) Fecal colorectal cancer screen (FIT) (11/26/2018 9:00 AM CDT) Occult Blood Scn FIT Positive(A ) NEG^Negati ve 12/02/2018 4:31 PM CDT [facility] Stool specimen (specimen) 11/26/2018 9:00 AM CDT 12/02/2018 7:48 AM CDT Feng Azul MD LAB - STOOLS ORDERAB LES Performing Organization Address City/State/[facility] Co de Phone Number [facility] [address] [place] [address] * Hepatitis C antibody (09/11/2015 8:29 AM CDT) Pathologist [facility] Hepatitis C Antibody Nonreactive Assay performance characteristics have not been established for newborns, infants, and children NR [facility] Blood specimen (specimen) 09/11/2015 8:29 AM CDT 09/11/2015 8:30 AM CDT Feng Azul MD LAB - BLOOD ORDERABL ES [facility] [address] [place], [place] [address] from Last 3 Months or Most Recently Relevant to Health Maintenance Advance Directives For more information, please contact: [phone] * No Code Status (Latest Code Status on File) Date Activated Date Inactivated Comments 07/23/2003 8:05 AM 07/23/2003 8:05 AM Care Teams Equipment Operator Warehouse Relationship Specialty Start Date End Date Katherine Zepeda DNP [address] [facility] 200 [place] [address] PCP - General Nurse Practitioner Primary Care 08/11/22 Tonia Verde PAMatiC [address] [place], [place] [address] Physician Bale Coverer Urology 05/11/21 Heather Ragland DO [address] [place] [address] Cardiovascular Disease 08/27/21 Ruth Em APRN SALES SECRETARY [address] [place] [address] Assigned OBGYN Provider 06/25/22 Sarah Tong DO [address] [facility] 200 [place] [address] Assigned PCP 01/28/23
--- OUTSIDE RECORDS SUMMARY | 2023-09-15 22:35 | XMS_ITS | Encounter Summary ---
Author Organization [place] Address [facility] [place] [address] Care Team Providers Care Jewelry Drilling Machine Operator Name Role Phone Chrystal Azul MD Primary Care Provider [phone] Fili Graves MD Unavailable Xu Moody MD Unavailable [phone] Chrystal Azul MD Unavailable [phone] Fili Graves MD Unavailable Tonia Verde PA-C Unavailable [phone] Tonia Verde PA-C Unavailable [phone] Chrystal Azul MD Unavailable [phone] Heather Ragland DO Unavailable [phone] Heather Ragland DO Unavailable [phone] Fili Graves MD Unavailable Fili Graves MD Unavailable Ruth Em APRN DIRECTOR CARDIAC Unavailable Tonia Verde PA-C Unavailable [phone] Ruth Em INTERNATIONAL OPERATIONS MANAGER DIRECTOR CARDIAC Unavailable Katherine Zepeda DNP Primary Care Provider Katherine Zepeda DNP Unavailable [phone] Sarah Tong DO Unavailable Reason for Visit * Reason Onset Date Comments Sleep Problem 07/14/2020 Encounter Details Date Type Department Care Team (Late st Contact Info) Description 07/14/2020 Telephone [facility] Care [address] [place] [address], [address] [place] [address] Temi Daniel Sleep Problem Social History Tobacco Use Types Packs/Day Years Used Date Smoking Tobacco: Former Cigarettes Q uit: 11/23/1985 Smokeless Tobacco: Never Alcohol Use Standard Drinks/Week Comments No 0 (1 standard drink = 0.6 oz pur e alcohol) 07/19/01 quit PHQ-2 Answer Date Recorded PHQ-2 Score 0 01/07/2020 Sex and Gender Information Value Date Recorded Sex Assigned at Female 07/14/2020 10:35 AM CDT 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 If she has, there may be an issue with CPAP [facility] and we can have pt bring machine in and looked at. No answer and lvm requesting a call back at [phone]. documented in this encounter Plan of Treatment Not on file documented as of this encounter Visit Diagnoses Not on filedocumented in this encounter Additional Health Concerns Assessment Noted Time PHQ-9 Depression Total Score: 9 06/05/19 20 9:34 AM CDT documented as of this encounter Care Teams Jewelry Drilling Machine Operator Relationship Specialty Start Date End Date Chrystal Azul MD [address] [address] PCP - General 08/26/02 08/10/22 Katherine Zepeda DNP [address] [facility] 200 [place] [address] PCP - General Nurse Practitioner Primary Care 08/11/22 Fili Graves MD 1414 [place] [address] Assigned PCP 01/12/20 01/09/21 Xu Moody MD [address] [place] [address] Assigned Sleep Provider 07/26/20 02/25/22 Chrystal Azul MD [address] [address] Assigned PCP 01/10/21 02/27/21 Fili Graves MD 1414 [place] [address] Assigned PCP 02/28/21 07/10/21 Tonia Verde PA-C [address] [place] [address] Physician Commercial Real Estate Appraiser Urology 05/11/21 Tonia Verde PA-C [address] [place] [address] Assigned OBGYN Provider 05/30/21 04/08/22 Chrystal Azul MD [address] [address] Assigned PCP 07/11/21 11/26/21 Heather Ragland DO [address] [place] [address] Cardiovascular Disease 08/27/21 RebecakerwinHeather DO [address] [place] [address] Assigned Heart and Vascular Provider 10/02/21 04/13/23 Fili Graves MD [address]14 [place] [address] Assigned PCP 11/27/21 02/04/22 Fili Graves MD [address] [place] [address] Assigned PCP 04/16/22 08/19/22 Ruth Em APRN DIRECTOR CARDIAC [address] [place] [address] Assigned OBGYN Provider 04/09/22 06/17/22 Tonia Verde PA-C [address] [place] [address] Assigned OBGYN Provider 06/18/22 06/24/22 Ruth Em APRN DIRECTOR CARDIAC [address] [place] [address] Assigned OBGYN Provider 06/25/22 Katherine Zepeda DNP 2[address] [facility] 200 [place] [address] Assigned PCP 08/20/22 01/27/23 Sarah Tong DO [address] [facility] 200 [place] [address] Assigned PCP 01/28/23 documented as of this encounter
--- OUTSIDE RECORDS SUMMARY | 2023-09-15 22:35 | XMS_ITS | Encounter Summary ---
Author Organization [address] Address [facility] [place] [address] Care Team Providers Care Chandelier Maker Name Role Phone Chrystal Azul MD Primary Care Provider [phone] Fili Graves MD Unavailable Xu Moody MD Unavailable [phone] Chrystal Azul MD Unavailable [phone] Fili Graves MD Unavailable Tonia Verde PA-C Unavailable [phone] Tonia Verde PA-C Unavailable +[phone] Chrystal Azul MD Unavailable [phone] Heather Ragland DO Unavailable [phone] Heather Ragland DO Unavailable [phone] Fili Graves MD Unavailable Fili Graves MD Unavailable Ruth Em APRN GWOT IA/ILO INTELLIGENCE SUPPORT Unavailable Tonia Verde PA-C Unavailable [phone] Ruth Em MAGNETO SPECIALIST GWOT IA/ILO INTELLIGENCE SUPPORT Unavailable Katherine Zepeda DNP Primary Care Provider Katherine Zepeda DNP Unavailable [phone] Sarah Tong DO Unavailable Encounter Details Date Type Department Care Team (Late st Contact Info) Description 07/17/2020 MyC Medical Advice [address] [address] Xu Moody MD [address] [place] [address] Social History Tobacco Use Types Packs/Day Years [...] CDT Gender Identity Female 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 Sexual Orientation Not on file documented as of this encounter Plan of Treatment Not on file documented as of this encounter Visit Diagnoses Not on filedocumented in this encounter Additional Health Concerns Assessment Noted Time PHQ-9 Depression Total Score: 9 06/05/19 20 9:34 AM CDT documented as of this encounter Care Teams Chandelier Maker Relationship Specialty Start Date End Date Chrystal Azul MD [address] [address] PCP - General 08/26/02 08/10/22 Katherine Zepeda DNP [address] [address] PCP - General Nurse Practitioner Primary Care 08/11/22 Fili Graves MD [address] [place] [address] Assigned PCP 01/12/20 01/09/21 Xu Moody MD [address]696 [place] [address] Assigned Sleep Provider 07/26/20 02/25/22 Chrystal Azul MD [address] [address] Assigned PCP 01/10/21 02/27/21 [place] [address] [place] [address] Assigned PCP 02/28/21 07/10/21 Tonia Verde PA-C [address] [place] [address] Physician Cloth Tester Quality Urology 05/11/21 Tonia Verde PA-C [address] [place] [address] Assigned OBGYN Provider 05/30/21 04/08/22 Chrystal Azul MD [address] [address] Assigned PCP 07/11/21 11/26/21 Heather Ragland DO [address] [place] [address] Cardiovascular Disease 08/27/21 Heather Ragland DO [address] [place] [address] Assigned Heart and Vascular Provider 10/02/21 04/13/23 Fili Graves MD 1414 [facility] [place] [address] Assigned PCP 11/27/21 02/04/22 Fili Graves MD [address] [facility] [place] [address] Assigned PCP 04/16/22 08/19/22 Ruth Em APRN GWOT IA/ILO INTELLIGENCE SUPPORT [address] [facility] [address] [place] [address] Assigned OBGYN Provider 04/09/22 06/17/22 Tnoia Verde PA-C 6363 [facility] 500 [place] [address] Assigned OBGYN Provider 06/18/22 06/24/22 Ruth Em APRN GWOT IA/ILO INTELLIGENCE SUPPORT 6525 [facility] 100 [place] [address] Assigned OBGYN Provider 06/25/22 Katherine Zepeda DNP [address] [place] [address] Assigned PCP 08/20/22 01/27/23 Sarah Tong DO [address] [place] [address] Assigned PCP 01/28/23 documented as of this encounter
--- OUTSIDE RECORDS SUMMARY | 2023-09-15 22:35 | XMS_ITS | Encounter Summary ---
Author Organization [place] Address [facility]0 [place] [address] Care Team Providers Care Accounts Payable Supervisor Name Role Phone Chrystal Azul MD Primary Care Provider [phone] Fili Graves MD Unavailable Xu Moody MD Unavailable [phone] Chrystal Azul MD Unavailable [phone] Fili Graves MD Unavailable Tonia Verde PA-C Unavailable [phone] Tonia Verde PA-C Unavailable [phone] Chrystal Azul MD Unavailable [phone] Heather Ragland DO Unavailable [phone] Heather Ragland DO Unavailable [phone] Fili Graves MD Unavailable Fili Graves MD Unavailable Ruth Em APRN OFFICE ELECTRICIAN Unavailable Tonia Verde PA-C Unavailable [phone] Ruth Em MANAGER FOOD SAFETY OFFICE ELECTRICIAN Unavailable Katherine Zepeda DNP Primary Care Provider [phone] Katherine Zepeda DNP Unavailable Sarah Tong DO Unavailable Encounter Details Date Type Department Care Team (Late st Contact Info) Description 07/14/2020 MyC Medical Advice [facility] [address] [address] Arlyn Foley, WINE BOTTLE INSPECTOR Social History Tobacco Use Types Packs/Day Years [...] CDT Gender Identity Female 12/25/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 Sexual Orientation Not on file documented as of this encounter Plan of Treatment Not on file documented as of this encounter Visit Diagnoses Not on filedocumented in this encounter Additional Health Concerns Assessment Noted Time PHQ-9 Depression Total Score: 9 06/05/19 20 9:34 AM CDT documented as of this encounter Care Teams Accounts Payable Supervisor Relationship Specialty Start Date End Date Chrystal Azul MD [address] [address] PCP - General 08/26/02 08/10/22 Katherine Zepeda DNP [address] [address] PCP - General Nurse Practitioner Primary Care 08/11/22 Fili Graves MD [address] [place] [address] Assigned PCP 01/12/20 01/09/21 Xu Moody MD [address] [place] [address] Assigned Sleep Provider 07/26/20 02/25/22 Chrystal Azul MD [address] [place] [address] Assigned PCP 01/10/21 02/27/21 Fili Graves MD 1414 [place] [address] Assigned PCP 02/28/21 07/10/21 Tonia Verde PA-C [address] [place] [address] Physician Icer Machine Operator Urology 05/11/21 Tonia Verde PA-C [address] [place] [address] Assigned OBGYN Provider 05/30/21 04/08/22 Chrystal Azul MD [address] [place] [address] Assigned PCP 07/11/21 11/26/21 Heather Ragland DO [address] [place] [address] Cardiovascular Disease 08/27/21 Heather Ragland DO [address] [place] [address] Assigned Heart and Vascular Provider 10/02/21 04/13/23 Fili Graves MD 1414 [place] [address] Assigned PCP 11/27/21 02/04/22 Fili Graves MD 1414 [facility] [place] [address] Assigned PCP 04/16/22 08/19/22 Ruth Em APRN OFFICE ELECTRICIAN 6525 [facility] 100 [place] [address] Assigned OBGYN Provider 04/09/22 06/17/22 Tonia Verde PA-C [address] [facility] [address] [place] [address] Assigned OBGYN Provider 06/18/22 06/24/22 Ruth Em APRN OFFICE ELECTRICIAN 6525 [facility] 100 [place] [address] Assigned OBGYN Provider 06/25/22 Katherine Zepeda DNP [address] [facility] [address] 200 [place] [address] Assigned PCP 08/20/22 01/27/23 Sarah Tong DO [address] [place] [address] Assigned PCP 01/28/23 documented as of this encounter
--- OUTSIDE RECORDS SUMMARY | 2023-09-15 22:35 | XMS_ITS | Encounter Summary ---
Author Organization [place] Address [address] [facility] [place] [address] Care Team Providers Care Sole Polisher Name Role Phone Chrystal Azul MD Primary Care Provider [phone] Tonia VerdeC Unavailable Heather Ragland DO Unavailable [phone] Heather Ragland DO Unavailable [phone] Fili Graves MD Unavailable Ruth Em APRN MANAGEMENT TRAINEE PROGRAM STORES Unavailable Tonia VerdeC Unavailable [phone] Ruth Em APRN MANAGEMENT TRAINEE PROGRAM STORES Unavailable Katherine Zepeda DNP Primary Care Provider [phone] Katherine Zepeda DNP Unavailable [phone] Sarah Tong DO Unavailable Encounter Details Date Type Department Care Team (Late st Contact Info) Description 05/13/2022 [facility] [place] [address] [facility] 2nd [place] [address] Peter Chen Social History Tobacco Use Types Packs/Day Years Used Date Smoking Tobacco: Former Cigarettes Q uit: 11/23/1985 Smokeless Tobacco: Never Alcohol Use Standard Drinks/Week Comments No 0 (1 standard drink = 0.6 oz pur e alcohol) 07/19/01 quit PHQ-2 Answer Date Recorded PHQ-2 Score 0 03/24/2022 Sex and Gender Information Value Date Recorded Sex Assigned at Female 07/14/2020 10:35 AM CDT Gender Identity Female 12/25/2019 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 Sexual Orientation Not on file documented as of this encounter Plan of Treatment Not on file documented as of this encounter Visit Diagnoses Not on filedocumented in this encounter Additional Health Concerns Assessment Noted Time PHQ-9 Depression Total Score: 1 03/24/19 10:43 AM ASSOCIATE JUSTICE documented as of this encounter Care Teams Sole Polisher Relationship Specialty Start Date End Date Chrystal Azul MD 2270 [facility] 200 [place] [address] PCP - General 08/26/02 08/10/22 Katherine Zepeda DNP [address] [address] PCP - General Nurse Practitioner Primary Care 08/11/22 Tonia Verde PA-C 6363 [facility] 500 [place] [address] Physician Pasteuriser Operator Urology 05/11/21 Heather Ragland DO [address] [place] [address] Cardiovascular Disease 08/27/21 Heather Ragland DO [address] [place] [address] Assigned Heart and Vascular Provider 10/02/21 04/13/23 Fili Graves MD 1414 [facility] [place] [address] Assigned PCP 04/16/22 08/19/22 Ruth Em APRN MANAGEMENT TRAINEE PROGRAM STORES [address] [facility] 100 [place] [address] Assigned OBGYN Provider 04/09/22 06/17/22 Tonia Verde PA-C [address] [facility] 500 [place] [address] Assigned OBGYN Provider 06/18/22 06/24/22 Ruth Em APRN MANAGEMENT TRAINEE PROGRAM STORES [address] [facility] 100 [place] [address] Assigned OBGYN Provider 06/25/22 Katherine Zepeda DNP [address] [facility] 200 [place] [address] Assigned PCP 08/20/22 01/27/23 Sarah Tong DO [address] [facility] 200 [place] [address] Assigned PCP 01/28/23 documented as of this encounter
--- OUTSIDE RECORDS SUMMARY | 2023-09-15 22:35 | XMS_ITS | Encounter Summary ---
Author Organization [place] Address [address] [facility] [place] [address] Care Team Providers Care Electrician Apprentice Powerhouse Name Role Phone Chrystal Azul MD Primary Care Provider [phone] Tonia VerdeC Unavailable [phone] Heather Ragland DO Unavailable [phone] Heather Ragland DO Unavailable [phone] Fili Graves MD Unavailable Ruth Em APRN SECURITY SUPPORT ANALYST Unavailable Tonia VerdeC Unavailable [phone] Ruth Em APRN SECURITY SUPPORT ANALYST Unavailable Katherine Zepeda DNP Primary Care Provider [phone] Katherine Zepeda DNP Unavailable [phone] Sarah Tong DO Unavailable Encounter Details Date Type Department Care Team (Late st Contact Info) Description 05/13/2022 [facility] [place] [address] [facility] 2nd [place] [address] Peter Chen Social History Tobacco [...] CDT Gender Identity Female 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 Sexual Orientation Not on file documented as of this encounter Plan of Treatment Not on file documented as of this encounter Visit Diagnoses Not on filedocumented in this encounter Additional Health Concerns Assessment Noted Time PHQ-9 Depression Total Score: 1 03/24/19 10:43 AM OFFICE SWEEPER documented as of this encounter Care Teams Electrician Apprentice Powerhouse Relationship Specialty Start Date End Date Chrystal Azul MD 2270 [facility] 200 [place] [address] PCP - General 08/26/02 08/10/22 Katherine Zepeda DNP [address] [address] PCP - General Nurse Practitioner Primary Care 08/11/22 Tonia Verde PA-C 6363 [facility] 500 [place] [address] Physician Machine Finisher Urology 05/11/21 Heather Ragland DO [address] [place] [address] Cardiovascular Disease 08/27/21 Heather Ragland DO [address] [place] [address] Assigned Heart and Vascular Provider 10/02/21 04/13/23 Fili Graves MD 1414 [facility] [place] [address] Assigned PCP 04/16/22 08/19/22 Ruth Em APRN SECURITY SUPPORT ANALYST [address] [facility] 100 [place] [address] Assigned OBGYN Provider 04/09/22 06/17/22 Tonia Verde PA-C [address] [facility] 500 [place] [address] Assigned OBGYN Provider 06/18/22 06/24/22 Ruth Em APRN SECURITY SUPPORT ANALYST [address] [facility] 100 [place] [address] Assigned OBGYN Provider 06/25/22 Katherine Zepeda DNP [address] [facility] 200 [place] [address] Assigned PCP 08/20/22 01/27/23 Sarah Tong DO [address] [facility] 200 [place] [address] Assigned PCP 01/28/23 documented as of this encounter
--- OUTSIDE RECORDS SUMMARY | 2023-09-15 22:35 | XMS_ITS | Encounter Summary ---
Author Organization [place] Address [facility] [place] [address] Care Team Providers Care Volunteer Services Supervisor Name Role Phone Chrystal Azul MD Primary Care Provider [phone] Fili Graves MD Unavailable Xu Moody MD Unavailable [phone] Chrystal Azul MD Unavailable [phone] Fili Graves MD Unavailable Tonia Verde PA-C Unavailable +[phone] Tonia Verde PA-C Unavailable +[phone] Chrystal Azul MD Unavailable [phone] Heather Ragland DO Unavailable [phone] Heather Ragland DO Unavailable [phone] Fili Graves MD Unavailable Fili Graves MD Unavailable Ruth Em APRN SOFTWARE DESIGN ANALYST Unavailable Tonia Verde PA-C Unavailable [phone] Ruth Em LEAD DATA ARCHITECT SOFTWARE DESIGN ANALYST Unavailable Katherine Zepeda DNP Primary Care Provider [phone] Katherine Zepeda DNP Unavailable [phone] Sarah Tong DO Unavailable Encounter Details Date Type Department Care Team (Late st Contact Info) Description 07/21/2020 MyC Medical Advice [facility] [address] [address] Arlyn Foley, SAP PROJECT MANAGER Social History Tobacco Use Types Packs/Day Years [...] CDT Gender Identity Female 12/25/2019 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 Sexual Orientation Not on file documented as of this encounter Plan of Treatment Not on file documented as of this encounter Visit Diagnoses Not on filedocumented in this encounter Additional Health Concerns Assessment Noted Time PHQ-9 Depression Total Score: 9 06/05/19 20 9:34 AM CDT documented as of this encounter Care Teams Volunteer Services Supervisor Relationship Specialty Start Date End Date Chrystal Azul MD [address] [address] PCP - General 08/26/02 08/10/22 Katherine Zepeda DNP [address] [address] PCP - General Nurse Practitioner Primary Care 08/11/22 Fili Graves MD [address] [place] [address] Assigned PCP 01/12/20 01/09/21 Xu Moody MD [address] [place] [address] 852646 Assigned Sleep Provider 07/26/20 02/25/22 Chrystal Azul MD [address] [place] [address] Assigned PCP 01/10/21 02/27/21 Fili Graves MD [address]14 [place] [address] Assigned PCP 02/28/21 07/10/21 Tonia Verde PA-C [address] [place] [address] Physician Supervisor Press Room Urology 05/11/21 Tonia Verde PA-C [address] [place] [address] Assigned OBGYN Provider 05/30/21 04/08/22 Chrystal Azul MD [address] [place] [address] Assigned PCP 07/11/21 11/26/21 Heather Ragland DO [address] [place] [address] Cardiovascular Disease 08/27/21 Heather Ragland DO [address] [place] [address] Assigned Heart and Vascular Provider 10/02/21 04/13/23 Fili Graves MD [address]14 [place] [address] Assigned PCP 11/27/21 02/04/22 Fili Graves MD [address] [facility] [place] [address] Assigned PCP 04/16/22 08/19/22 Ruth Em APRN SOFTWARE DESIGN ANALYST 6525 [facility] 100 [place] [address] Assigned OBGYN Provider 04/09/22 06/17/22 Tonia Verde PA-C 6363 [facility] [address] 500 [place] [address] Assigned OBGYN Provider 06/18/22 06/24/22 Ruth Em APRN SOFTWARE DESIGN ANALYST 6525 [facility] 100 [place] [address] Assigned OBGYN Provider 06/25/22 Katherine Zepeda DNP [address] [facility] [address] 200 [place] [address] Assigned PCP 08/20/22 01/27/23 Sarah Tong DO [address] [place] [address] [place] [address] Assigned PCP 01/28/23 documented as of this encounter
--- OUTSIDE RECORDS SUMMARY | 2023-09-15 22:35 | XMS_ITS | Referral Summary ---
Author Organization [place] Address [facility] [place] [address] Care Team Providers Care Discovery Manager Name Role Phone Tonia Verde PA-C Unavailable [phone] Heather Ragland DO Unavailable [phone] Ruth Em APRN PSYCH COORDINATOR Unavailable Katherine Zepeda DNP Primary Care Provider [...] 06/10/2016 Zoster recombinant adjuvante d (SHINGRIX) 09/27/2017,07/14/2017 Social History Tobacco Use Types Packs/Day Years [...] Date Recorded Do you have housing? (Meera g is defined as stable permanent housing and does not include staying ouside in a car, in a tent, in an abandoned building, in an overnight nursing home, or couch-surfing.) Yes 01/24/2023 Are you worried [...] CDT Gender Identity Female 12/25/2019 6:50 PM TEACHER ASSISTANT Sexual Orientation Not on file Last Filed Vital Signs Vital Sign Reading Time Taken Comments Blood Pressure 124/78 01/25/2023 1:01 PM TEACHER ASSISTANT Pulse 61 01/25/2023 1:01 PM TEACHER ASSISTANT Temperature 36.4 ??C (97.5 ??F) 01/25/2023 1:01 PM CS T Respiratory Rate 20 01/25/2023 1:01 PM TEACHER ASSISTANT Oxygen Saturation 99% 01/25/2023 1:01 PM TEACHER ASSISTANT Inhaled Oxygen Concentration - - Weight 67.5 kg (148 lb 14.4 oz) 01/25/2023 1:01 PM TEACHER ASSISTANT Height 167.5 cm (5' 5.95) 01/25/2023 1:01 PM CS T Body Mass Index 24.07 01/25/2023 1:01 PM TEACHER ASSISTANT Plan of Treatment Not on file Procedures Procedure Name Priority Date/Time Associated Diagnosis Comments MA DIAGNOSTIC LEFT W/ RICHARD Routine 03/10/2023 2:14 PM TEACHER ASSISTANT Abnormal mammogram of left breast RI DEXA BONE DENSITY, >=1 SITE, AXIAL SKELETON Routine 03/07/2023 11:23 AM TEACHER ASSISTANT Encounter for osteoporosis screening in asymptomatic postmenopausal patient TSH WITH FREE T4 REFLEX Routine 01/25/2023 1:40 PM TEACHER ASSISTANT Hypothyroidism, unspecified type COMPREHENSIVE METABOLIC PANEL Routine [...] MA Diagnostic Left w/Richard (03/10/2023 2:14 PM TEACHER ASSISTANT) Anatomical Region Laterality Modality Breast Bilateral Mammography Impressions 03/10/2023 3:10 PM TEACHER ASSISTANT IMPRESSION: BI-RADS CATEGORY: 1 - ??Negative. RECOMMENDED [...] ANICETO CRAMER MD Narrative 03/10/2023 3:10 PM TEACHER ASSISTANT Examinations: MA DIAGNOSTIC LEFT W/ RICHARD, US [...] DEXA HIP/PELVIS/SPINE - Future (03/07/2023 11:23 AM TEACHER ASSISTANT) Anatomical Region Laterality Modality Dexa Bone Mineral Den sity Narrative 03/07/2023 10:47 PM TEACHER ASSISTANT Images from the original result were not included. [address], [place] [address] Phone: ?? Fax: Impression The most negative [...] spine is represented by L1-L3 Principal result dough mixer helper: Martínez Segura MD, [facility] Division of Endocrinology and Diabetes ?? Department of Medicine References: Ref. 1. WHO categories: ? T-score > -1.0 ??= normal ? . ? T-score -1.0 to -2.5 = low bone density T-score < -2.5 = osteoporosis ?. Ref. 2. 2014 ISCD official position statements: ??www.[email or web address].org. Ref. 3. [...] LSC = least significant changes at the [facility] Imaging Center (historical data) AP spine [...] with free T4 reflex (01/25/2023 1:40 PM TEACHER ASSISTANT) TSH 1.79 0.30 - 4.20 uIU/mL 01/26/2023 9:24 AM TEACHER ASSISTANT [facility] Blood STRUCTURE OF LEFT UPPER LIMB / Unknown Venipuncture / Unknown 01/25/2023 1:40 PM TEACHER ASSISTANT 01/25/2023 1:40 PM TEACHER ASSISTANT Sarah Jazzmine Tong DO LAB - BLOOD O RDERABLES [facility] [place] [facility] [address] [facility], [address] [place] [address], [facility] [phone] * Comprehensive metabolic panel (BMP + Alb, [...] LAB - BLOOD O RDERABLES [facility] [place] [facility] [address] [facility], [address] [place] [address], [facility] [phone] * (ABNORMAL) Lipid panel reflex to direct LDL Non-fasting (08/11/2022 10:59 AM CDT) Pathologist [facility] Cholesterol 245(H) <200 mg/dL 08/11/2022 4:48 PM [...] Zepeda DNP LAB - BLOOD ORDERABL ES [facility] [address] [facility], [address] [place] [address], [facility] [phone] * COLONOSCOPY (05/24/2022 9:54 AM CDT) [facility] Signature COLONOSCOPY [place] [address] ??[place] ??[address] Patient Name: Corrie Simmons ?Procedure Date: 05/24/2022 9:54 AM ? Date of : 1950 ?Admit Type: Outpatient Age: 71 ? Room: [place] [address] Note Status: Finalized ?Attending MD: JARVIS RODARTE MD Instrument Name: 514 [id number] Peds Colon Procedure: ?Colonoscopy Indications: ?Positive fecal [...] 9:54 AM CDT Feng Azul MD PROCEDURES RADIOLOGY RESULTS * (ABNORMAL) Fecal colorectal cancer screen (FIT) (11/26/2018 9:00 AM CDT) Pathologist [facility] Occult Blood Scn FIT Positive(A ) NEG^Negati ve 12/02/2018 4:31 PM CDT [facility] Stool specimen (specimen) 11/26/2018 9:00 AM CDT 12/02/2018 7:48 AM CDT Feng Azul MD LAB - STOOLS ORDERAB LES Performing Organization Address City/[facility]/ZIP Co de Phone Number [facility] [address] [place] [address] * Hepatitis C antibody (09/11/2015 8:29 AM CDT) [facility] Hepatitis C Antibody Nonreactive Assay performance characteristics have not been established for newborns, infants, and children NR [facility] Blood specimen (specimen) 09/11/2015 8:29 AM CDT 09/11/2015 8:30 AM CDT Feng Azul MD LAB - BLOOD ORDERABL ES Performing Organization Address City/[facility] Co de Phone Number [facility] [address] [place], [place] [id number] [place] [address] from Last 3 Months or Most Recently Relevant to Health Maintenance Advance Directives For more information, please contact: [phone] * No Code Status (Latest Code Status on File) Date Activated Date Inactivated Comments 07/23/2003 8:05 AM 07/23/2003 8:05 AM Care Teams Discovery Manager Relationship Specialty Start Date End Date Katherine Zepeda DNP [address] [place] [address] PCP - General Nurse Practitioner Primary Care 08/11/22 Tonia Verde PA-C [address] [place] [id number] Physician Mill Operator Urology 05/11/21 Heather Ragland DO [address] [place] [address] Cardiovascular Disease 08/27/21 Ruth Em APRN PSYCH COORDINATOR [address] [place] [address] Assigned OBGYN Provider 06/25/22 Sarah Tong DO [address] [place] [address] Assigned PCP 01/28/23
[2023-09-15 22:36] LABS: Slide Review Reflex No
--- OUTSIDE RECORDS SUMMARY | 2023-09-15 22:36 | XMS_ITS | Encounter Summary ---
Author Organization [place] Address [facility] [place] [address] Care Team Providers Care Underwriting Specialist Name Role Phone Chrystal Azul MD Primary Care Provider [phone] Chantel Wheatley CELL COVERER Unavailable [phone] Jacki Blanchard MD Unavailable Jacki Blanchard MD Unavailable Chrystal Azul MD Unavailable Fili Graves MD Unavailable Naty Barrera MD Unavailable Xu Moody MD Unavailable [phone] Chrystal Azul MD Unavailable Fili Graves MD Unavailable Tonia Verde PA-C Unavailable [phone] Tonia Verde PA-C Unavailable Chrystal Azul MD Unavailable [phone] Heather Ragland DO Unavailable [phone] Heather Ragland DO Unavailable [phone] Fili Graves MD Unavailable Fili Graves MD Unavailable Ruth Em APRN, CNP Unavailable Tonia Verde PA-C Unavailable Ruth Em RADIATOR CLEANER SEED COLLECTOR Unavailable Katherine Zepeda DNP Primary Care Provider [phone] Katherine Zepeda DNP Unavailable [phone] Sarah Tong Unavailable Encounter Details Date Type Department Care Team (Late st Contact Info) Description 03/21/2014 Telephone [place] [id number] [address] [place] [phone] Chrystal Azul MD [address] [address] Social History Tobacco Use Types Packs/Day Years Used Date Smoking Tobacco: Former Cigarettes 1 - 11/23/2005 Smokeless Tobacco: Never Alcohol Use Standard Drinks/Week Comments No 0 (1 standard drink = 0.6 oz pur e alcohol) 07/19/01 quit Sex and Gender Information Value Date Recorded Sex Assigned at Female 07/14/2020 10:35 AM CDT Gender Identity Female 12/25/2019 6:50 PM SALES MARKETING MANAGER Sexual Orientation Not on file documented as of this encounter Miscellaneous Notes * Telephone Encounter - Didi Thompson - 03/21/2014 11:16 AM CST Staff called patient and left her with mammo scheduling info. Staff also sent a reminder letter to patient to schedule for her mammogram. didi villela S MARKETING MANAGER documented in this encounter Plan of Treatment Not on file documented as of this encounter Visit Diagnoses Not on filedocumented in this encounter Additional Health Concerns Infection Onset Date Last Indicated Resolved Time Rule Out COVID-19 08/01/2019 08/01/2019 08/02/2019 11:10 AM CDT documented as of this encounter Care Teams Underwriting Specialist Relationship Specialty Start Date End Date Chrystal Azul MD [address] [address] PCP - General 08/26/02 08/10/22 Jacki Blanchard MD [address] [address] PCP - Assigned PCP 10/08/17 04/24/18 Katherine Zepeda DNP [address] [address] PCP - General Nurse Practitioner Primary Care 08/11/22 Chantel Wheatley, CELL COVERER Special Education Inclusion Teacher 06/17/16 10/31/16 Jacki Blanchard MD [address] [address] Assigned PCP 10/08/17 05/12/18 Chrystal Azul MD [address] [address] Assigned PCP 05/13/18 12/21/19 Fili Graves MD [address] [place] [address] Assigned PCP 01/12/20 01/09/21 Naty Barrera MD [address] [address] Assigned PCP 12/22/19 01/11/20 Xu Moody MD [address] [place] [address] 154146 Assigned Sleep Provider 07/26/20 02/25/22 Chrystal Azul MD [address] [place] [address] Assigned PCP 01/10/21 02/27/21 Fili Graves MD [address] [place] [address] Assigned PCP 02/28/21 07/10/21 Tonia Verde PA-C [address] [place] [address] Physician Raw Finish Mill Operator Urology 05/11/21 Tonia Verde PA-C [address] [place] [address] Assigned OBGYN Provider 05/30/21 04/08/22 Chrystal Azul MD [address] [place] [address] Assigned PCP 07/11/21 11/26/21 Heather Ragland DO [address] [place] [address] Cardiovascular Disease 08/27/21 Heather Ragland DO [address] [place] [address] Assigned Heart and Vascular Provider 10/02/21 04/13/23 Fili Graves MD [address] [place] [address] Assigned PCP 11/27/21 02/04/22 Fili Graves MD [address] [facility] [place] [address] Assigned PCP 04/16/22 08/19/22 Ruth Em APRN SEED COLLECTOR [address] [facility] 100 [place] [address] Assigned OBGYN Provider 04/09/22 06/17/22 Tonia Verde PA-C [address] [facility] [address] [place] [address] Assigned OBGYN Provider 06/18/22 06/24/22 Ruth Em APRN SEED COLLECTOR 65[address] [facility] 100 [place] [address] Assigned OBGYN Provider 06/25/22 Katherine Zepeda DNP [address] [facility] [address] [place] [address] Assigned PCP 08/20/22 01/27/23 Sarah Tong DO [address] [place] [address] Assigned PCP 01/28/23 documented as of this encounter
--- OUTSIDE RECORDS SUMMARY | 2023-09-15 22:36 | XMS_ITS | Encounter Summary ---
Author Organization [place] Address [facility] [place] [address] Care Team Providers Care Refrigeration Plant Operator Name Role Phone Chrystal Azul MD Primary Care Provider [phone] Chantel Wheatley BASKET FILLER Unavailable [phone] Jacki Blanchard MD Unavailable Jacki Blanchard MD Unavailable Chrystal Azul MD Unavailable Fili Graves MD Unavailable Naty Barrera MD Unavailable [phone] Xu Moody MD Unavailable Chrystal Azul MD Unavailable Fili Graves MD Unavailable Tonia Verde PA-C Unavailable Tonia Verde PA-C Unavailable [phone] Chrystal Azul MD Unavailable [phone] Heather Ragland DO Unavailable [phone] Heather Ragland DO Unavailable [phone] Fili Graves MD Unavailable Fili Graves MD Unavailable Ruth Em APRN, CNP Unavailable Tonia Verde PA-C Unavailable Ruth Em OPTICAL SYSTEMS ENGINEER NEWS ASSISTANT Unavailable Katherine Zepeda DNP Primary Care Provider Katherine Zepeda DNP Unavailable [phone] Sarah Tong Unavailable Encounter Details Date Type Department Care Team (Late st Contact Info) Description 11/23/2012 Telephone [place] [id number] [place] [phone] Chrystal Azul MD [address] [address] Social History Tobacco Use Types Packs/Day Years Used Date Smoking Tobacco: Former Cigarettes 1 - 11/23/2005 Smokeless Tobacco: Never Alcohol Use Standard Drinks/Week Comments No 0 (1 standard drink = 0.6 oz pur e alcohol) 07/19/01 quit Sex and Gender Information Value Date Recorded Sex Assigned at Female 07/14/2020 10:35 AM CDT Gender Identity Female 12/25/2019 6:50 PM CLAIMS ASSOCIATE Sexual Orientation Not on file documented as of this encounter Miscellaneous Notes * Telephone Encounter - Didi Thompson - 11/23/2012 9:28 AM CDT Staff called and reminded patient to call and schedule for her mammo screening. Staff also sent a reminder letter to patient. tika Tolbert documented in this encounter Plan of Treatment Not on file documented as of this encounter Visit Diagnoses Not on filedocumented in this encounter Additional Health Concerns Infection Onset Date Last Indicated Resolved Time Rule Out COVID-19 08/01/2019 08/01/2019 08/02/2019 11:10 AM CDT documented as of this encounter Care Teams Refrigeration Plant Operator Relationship Specialty Start Date End Date Chrystal Azul MD [address] [address] PCP - General 08/26/02 08/10/22 Jacki Blanchard MD [address] [address] PCP - Assigned PCP 10/08/17 04/24/18 Katherine Zepeda DNP [address] [address] PCP - General Nurse Practitioner Primary Care 08/11/22 Chantel Wheatley, BASKET FILLER Hat Blocking Operator 06/17/16 10/31/16 Jacki Blanchard MD [address] [address] Assigned PCP 10/08/17 05/12/18 Chrystal Azul MD [address] [address] Assigned PCP 05/13/18 12/21/19 Fili Graves MD [address] [place] [address] Assigned PCP 01/12/20 01/09/21 Naty Barrera MD [address] [address] Assigned PCP 12/22/19 01/11/20 Xu Moody MD [address] [place] [address] 458446 Assigned Sleep Provider 07/26/20 02/25/22 Chrystal Azul MD [address] [address] Assigned PCP 01/10/21 02/27/21 Fili Graves MD 1414 [place] [address] Assigned PCP 02/28/21 07/10/21 Tonia Verde PA-C [address] [place] [address] Physician Assembler Dry Cell And Battery Urology 05/11/21 Tonia Verde PA-C [address] [place] [address] Assigned OBGYN Provider 05/30/21 04/08/22 Chrystal Azul MD [address] [address] Assigned PCP 07/11/21 11/26/21 Heather Ragland DO [address] [place] [address] Cardiovascular Disease 08/27/21 Heather Ragland DO [address] [place] [address] Assigned Heart and Vascular Provider 10/02/21 04/13/23 Fili Graves MD 1414 [place] [address] Assigned PCP 11/27/21 02/04/22 Fili Graves MD 1414 [facility] [place] [address] Assigned PCP 04/16/22 08/19/22 Ruth Em APRN NEWS ASSISTANT 6525 [facility] 100 [place] [address] Assigned OBGYN Provider 04/09/22 06/17/22 Tonia Verde PA-C [address] [facility] [address] [place] [address] Assigned OBGYN Provider 06/18/22 06/24/22 Ruth Em APRN NEWS ASSISTANT 65[address] [facility] 100 [place] [address] Assigned OBGYN Provider 06/25/22 Katherine Zepeda DNP [address] [place] [address] Assigned PCP 08/20/22 01/27/23 Sarah Tong DO [address] [facility] [place] [place] [address] Assigned PCP 01/28/23 documented as of this encounter
--- OUTSIDE RECORDS SUMMARY | 2023-09-15 22:36 | XMS_ITS | Encounter Summary ---
Author Organization [place] Address [facility] [place] [address] Care Team Providers Care Construction Inspector Name Role Phone Chrystal Azul MD Primary Care Provider [phone] Chantel Wheatley DYE MIXER Unavailable [phone] Jacki Blanchard MD Unavailable Jacki Blanchard MD Unavailable Chrystal Azul MD Unavailable [phone] Fili Graves MD Unavailable Naty Barrera MD Unavailable [phone] Xu Moody MD Unavailable Chrystal Azul MD Unavailable Fili Graves MD Unavailable Tonia Verde PA-C Unavailable [phone] Tonia Verde PA-C Unavailable Chrystal Azul MD Unavailable Heather Ragland DO Unavailable [phone] Heather Ragland DO Unavailable [phone] Fili Graves MD Unavailable Fili Graves MD Unavailable Ruth Em APRN, CNP Unavailable Tonia Verde PA-C Unavailable [phone] Ruth Em SECURITY CHECKER SENIOR FACILITIES MANAGER Unavailable Katherine Zepeda DNP Primary Care Provider Katherine Zepeda DNP Unavailable [phone] Sarah Tong Unavailable Encounter Details Date Type Department Care Team (Late st Contact Info) Description 09/09/2013 Telephone [place] [phone] [place] [phone] Chrystal Azul MD [address] [address] Social History Tobacco Use Types Packs/Day Years Used Date Smoking Tobacco: Former Cigarettes 1 - 11/23/2005 Smokeless Tobacco: Never Alcohol Use Standard Drinks/Week Comments No 0 (1 standard drink = 0.6 oz pur e alcohol) 07/19/01 quit Sex and Gender Information Value Date Recorded Sex Assigned at Female 07/14/2020 10:35 AM CDT Gender Identity Female 12/25/2019 6:50 PM 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 Staff also sent a reminder letter to patient. Didi villela. documented in this encounter Plan of Treatment Not on file documented as of this encounter Visit Diagnoses Not on filedocumented in this encounter Additional Health Concerns Infection Onset Date Last Indicated Resolved Time Rule Out COVID-19 08/01/2019 08/01/2019 08/02/2019 11:10 AM CDT documented as of this encounter Care Teams Construction Inspector Relationship Specialty Start Date End Date Chrystal Azul MD [address] [address] PCP - General 08/26/02 08/10/22 Jacki Blanchard MD [address] [address] PCP - Assigned PCP 10/08/17 04/24/18 Katherine Zepeda DNP [address] [address] PCP - General Nurse Practitioner Primary Care 08/11/22 Chantel Wheatley, DYE MIXER Garage Door Installer 06/17/16 10/31/16 Jacki Blanchard MD [address] [place] [address] Assigned PCP 10/08/17 05/12/18 Chrystal Azul MD [address] [place] [address] Assigned PCP 05/13/18 12/21/19 Fili Graves MD [address] [place] [address] Assigned PCP 01/12/20 01/09/21 Naty Barrera MD [address] [place] [address] Assigned PCP 12/22/19 01/11/20 Xu Moody MD [address] [place] [address]39626 Assigned Sleep Provider 07/26/20 02/25/22 Chrystal Azul MD [address] [address] Assigned PCP 01/10/21 02/27/21 Fili Graves MD 1414 [place] [address] Assigned PCP 02/28/21 07/10/21 Tonia Verde PA-C [address] [place] [address] Physician Aviation Project Manager Urology 05/11/21 Tonia Verde PA-C [address] [place] [address] Assigned OBGYN Provider 05/30/21 04/08/22 Chrystal Azul MD [address] [address] Assigned PCP 07/11/21 11/26/21 Heather Ragland DO [address] [place] [address] Cardiovascular Disease 08/27/21 Heather Ragland DO [address] [place] [address] Assigned Heart and Vascular Provider 10/02/21 04/13/23 Fili Graves MD 1414 [place] [address] Assigned PCP 11/27/21 02/04/22 Fili Graves MD 1414 [place] [address] Assigned PCP 04/16/22 08/19/22 Ruth Em APRN SENIOR FACILITIES MANAGER 6525 [facility] 100 [place] [address] Assigned OBGYN Provider 04/09/22 06/17/22 Tonia Verde PA-C 6[address] [facility] [address] [place] [address] Assigned OBGYN Provider 06/18/22 06/24/22 Ruth Em APRN SENIOR FACILITIES MANAGER 65[address] [facility] 100 [place] [address] Assigned OBGYN Provider 06/25/22 Katherine Zepeda DNP [address] [place] [address] Assigned PCP 08/20/22 01/27/23 Sarah Tong DO [address] [place] [address] Assigned PCP 01/28/23 documented as of this encounter
--- OUTSIDE RECORDS SUMMARY | 2023-09-15 22:36 | XMS_ITS | Clinical Summary ---
Author Organization [facility] Address [place], [place] [address] Care Team Providers Care Csr Retail Name Role Phone Chrystal Azul Gisela Primary Care Provider [phone] Allergies No known active allergies Medications Medication Sig Dispensed Refills Start Date End Date Status aspirin 81 mg tablet Take 81 mg by mouth once daily with a meal. Active venlafaxine (EFFEXOR XR) 150 mg Extended-Release capsule Take 1 capsule by mouth once daily with evening meal. 0 01/26/2015 Active venlafaxine (EFFEXOR XR) 37.5 mg Extended-Release capsule Take 1 capsule by mouth once daily with a meal. 0 01/26/2015 Active melatonin 3 mg tablet Take 1 tablet by mouth at bedtime. 0 01/26/2015 Active omega-3 fatty acids-vitamin E (FISH OIL) 1,000 mg cap Take 1,000 capsules by mouth once daily. 0 01/26/2015 Active multivitamin (MVI) tablet Take 1 tablet by mouth once daily. 0 01/26/2015 Active Family History Medical History Relation Name Comments Diabetes Brother Cancer-ovarian Mother Cancer-breast No Family History Cancer-colon No Family History Relation Name Status Comments Brother Mother Social History Tobacco Use Types Packs/Day Years Used Date Smoking Tobacco: Former Smokeless Tobacco: Never Tobacco Cessation:Counseling Given: No Alcohol Use Standard Drinks/Week Comments Not Asked 0 (1 standard drink = 0.6 oz pur e alcohol) Sex and Gender Information Value Date Recorded Sex Assigned at Not on file Gender Identity Not on file Sexual Orientation Not on file Obstetrics History Last Filed Vital Signs Vital Sign Reading Time Taken Comments Blood Pressure 143/90 01/26/2015 11:00 AM [employer] Pulse 67 01/26/2015 11:00 AM [employer] Temperature 36.6 ??C (97.8 ??F) 01/26/2015 11:[address] Respiratory Rate 16 01/26/2015 11:00 AM [employer] Oxygen Saturation 99% 01/11/2010 4:45 PM [employer] Inhaled Oxygen Concentration - - Weight 74.4 kg (164 lb) 01/26/2015 11:00 AM [employer] Height 170 cm (5' 6.93) 01/26/2015 11:00 AM [employer] Body Mass Index 25.74 01/26/2015 11:00 AM [employer] Plan of Treatment Health Maintenance Due Date Last Done Comments Tdap 1961 Depression screening for age 12+ 1962 BMI (ht and wt on same day) for age 18+ 1968 Hepatitis C screening for age 18-79 1968 Tetanus booster 1970 Colonoscopy through age 75 06/06/1995 Lipids for age 45-75 06/06/1995 Zoster (shingles) series for age 50+ (1 of 2) 2000 DEXA/DXA scan for age 65+ 06/06/2015 Pneumococcal series for age 65+ (1 of 1 - PCV) 06/06/2015 Mammogram for age 45-75 07/23/2016 07/24/2015, 12/31 COVID-19 vaccine series ( - 2022-24 season) 2022 04/28/2020 Influenza for age 65+ 10/22/2023 Procedures Procedure Name Priority Date/Time Associated Diagnosis Comments XR MAMMO BILAT SCREEN FFDM (IA) Routine 07/24/2015 8:15 AM CDT Visit for screening mammogram from Last 3 Months or Most Recently Relevant to Health Maintenance Results * XR MAMMO BILAT SCREEN FFDM (07/24/2015 8:15 AM CDT) Anatomical Region Laterality Modality BREASTS, Breast Left, Breast Right Bilateral Mammography Impressions 07/24/2015 9:31 AM CDT ??There is no radiographic evidence for malignancy. ??Recommend annual mammograms. A lay language report of this examination will be provided to the patient. MAMMOGRAM ASSESSMENT: ??ACR 1 Negative Narrative 07/24/2015 9:31 AM CDT XR MAMMO BILAT SCREEN FFDM [G0202.0] CLINICAL HISTORY: ??This is an asymptomatic 65 y.o. patient. INDICATION FOR EXAM: Mammogram Screening. TECHNIQUE: CC & MLO views were obtained. ??This digital study was evaluated with the assistance of Computer-Aided Detection. COMPARISON FILM: This is a baseline study. FINDINGS: ??Mammographically, the breast tissue has scattered fibroglandular densities. ??There are no dominant masses, suspicious micro calcifications or areas of architectural distortion. Chrystal Azul MAMMO from Last 3 Months or Most Recently Relevant to Health Maintenance Care Teams Csr Retail Relationship Specialty Start Date End Date Chrystal Azul PCP - General 01/11/10
[2023-09-15 22:47] LABS: PCR FLU A Negative PCR FLU A (Negative); PCR FLU B Negative PCR FLU B (Negative); PCR RSV Negative PCR RSV (Negative); SARS PCR* Negative SARS-CoV-2 (Negative)
[2023-09-15 22:56] LABS: Appearance Urine Clear (Clear); Bilirubin Urine Negative (Negative); Blood Urine Negative (Negative); Color Urine Yellow (Yellow); Glucose Urine Negative (Negative); Ketones Urine Negative (Negative); Leukocyte Esterase Urine Trace (Negative); Nitrite Urine Negative (Negative); Protein Urine Negative (Negative); Specific Gravity Urine 1.015 (1.000-1.030); Urobilinogen Urine 0.2 (0.2-1.0)
--- NOTE | 2023-09-15 23:07 | P.IMHP_ITS ---
Hospitalist- H&P: HPI History of Present Illness Date Seen: 09/16/23 Chief complaint: Dizziness, nausea Narrative: ADMISSION HISTORY AND PHYSICAL - HOSPITALIST Chief Complaint: abrupt dizziness; CODE Stroke in the ED HPI: 73 y/o WFwith a hx of hypothyroidism and mild depression [place]. She states she had 2 acute events today that were similar in nature. She describes the onset of dizziness/movement sensation with diaphoresis and nausea. No slurring of words or weakness specific to any body part noted. No headache, visual changes or chest pain. No tingling. No hx of stroke/TIA or HTN. Did arrive hypertensive however (). She was able to drive herself from the venue to our hospital. She lives in [place] and is in town for the weekend. She states if she looks straight ahead she is less dizzy. No recent illness. However she states she has had COVID contacts. No fever chills or rash. No recent travel [facility]. She lives alone. 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 She is . She has 1 adult son who lives in [place]. He is her emergency contact. PCP: Family Practice: [facility] ER COURSE: Stroke code. CT with CTA negative. Aspirin given. Benadryl given. Labs. CODE STATUS: FULL CODE EMERGENCY CONTACT PLAN: Rick Simmons Rel To Pat Son Cell I've updated the PFSH, medications and allergies in the Expanse tabs. INVESTIGATIONS: LABS/MICRO/ECG/IMAGING CT HEAD. NO ACUTE INTRACRANIAL ABNORMALITY Preliminary Impression: CTA Neck: No evidence of dissection or significant stenosis. CTA Brain: No large vessel occlusion, flow limiting stenosis, or large aneurysm -CBC totally normal. -CMP unremarkable. -troponin normal, CRP normal -TSH normal -UA unremarkable. Only trace LE and few bacteria noted. -negative respiratory screen, including COVID -EKG shows normal sinus rhythm REVIEW OF SYSTEMS: 12-point ROS completed with patient and negative unless otherwise stated in HPI or below. PHYSICAL EXAM: CONSTITUTIONAL: Conversive, good historian. A/O. Knows setting and context. Does not appear dizzy. Is able to move her head around and have a conversation. She does remark the benadryl has helped. VITAL SIGNS: see record. HEENT: Normocephalic, atraumatic. PERRL, EOMI, conjunctivae pink, no scleral icterus. Ears and nose externally normal. Pharynx normal. No nystagmus. NECK: No JVD. No carotid bruit, no thyromegaly, no adenopathy. CHEST: Clear to auscultation bilaterally HEART: S1 and S2 normal. No harsh murmurs. No edema. MUSCULOSKELETAL: No gross joint deformity or swelling. NEURO: Cranial nerves intact. Grossly intact. No asymmetric findings. strength, romberg, neg. SKIN: No rashes, petechiae, concerning changes PSYCHIATRIC: Euthymic. ADMIT TO MEDSURG: FLOOR CARE DVT: SCDs and aspirin GI: PO intake Time spent: Today I spent 75 minutes seeing the patient, discussing the patient with ER staff, reviewing Expanse and EPIC notes/diagnostics, discussing the care plan with our care time that includes social work, PT/OT, pharmacy, RT, fpc and documenting my impressions and plan in the medical record. [facility] Medical History (Updated 09/16/23 @ 00:22 by Johanna Benton MD) Wrist fracture, bilateral ?S62.101A - Fracture of unspecified carpal bone, right wrist, initial encounter for closed fracture (ICD-10) ?S62.102A - Fracture of unspecified carpal bone, left wrist, initial encounter for closed fracture (ICD-10) Mild depression ?F32.A - Depression, unspecified (ICD-10) Hypothyroidism ?E03.9 - Hypothyroidism, unspecified (ICD-10) Surgical History (Updated 09/16/23 @ 00:22 by Johanna Benton MD) S/P tubal ligation ?Z98.51 - Tubal ligation status (ICD-10) S/P ORIF (open reduction internal fixation) fracture ?Z98.890 - Other specified postprocedural states (ICD-10) ?Z87.81 - Personal history of (healed) traumatic fracture (ICD-10) Social History Smoking Status: Former smoker What tobacco products do you use: cigarettes Smoking quit date/years: >15 years ago How often do you have a drink containing alcohol: never AUDIT-C Alcohol total score: 0 Non-prescribed substance use: denies use Meds Home Medications and Allergies Home Medications ?Medication ?Instructions ?Recorded ?Confirmed ?Type aspirin 81 mg capsule 81 mg PO DAILY 09/15/23 09/15/23 History fluoxetine .ROUTE 09/15/23 History levothyroxine .ROUTE 09/15/23 History Allergies Allergy/AdvReac Type Severity Reaction Status Date / Time No Known Drug Allergies Allergy Verified 09/15/23 21:46 Exam Const: Vital Signs, click to edit/add: Vital Signs - 24 hr 09/15/23 21:05 09/15/23 21:14 09/15/23 21:15 Temperature 97.6 F Pulse Rate 58 L 57 L Pulse Rate [Pulse Oximeter] 62 Respiratory Rate 18 Blood Pressure Blood Pressure [Ri ght Upper Arm] 201/94 H Pulse Oximetry 100 100 100 Oxygen Delivery [facility] Room Air 09/15/23 21:30 09/15/23 21:57 09/15/23 22:00 Temperature Pulse Rate 56 L 62 64 Pulse Rate [Pulse Oximeter] Respiratory Rate Blood Pressure 200/88 H Blood Pressure [Ri ght Upper Arm] Pulse Oximetry 100 99 99 Oxygen Delivery [facility] 09/15/23 22:01 09/15/23 22:15 09/15/23 22:30 Temperature Pulse Rate 64 63 65 Pulse Rate [Pulse Oximeter] Respiratory Rate Blood Pressure Blood Pressure [Ri ght Upper Arm] Pulse Oximetry 98 97 99 Oxygen Delivery [facility] 09/15/23 22:38 09/15/23 22:43 09/15/23 22:45 Temperature Pulse Rate 79 64 Pulse Rate [Pulse Oximeter] Respiratory Rate Blood Pressure 203/90 H Blood Pressure [Ri ght Upper Arm] Pulse Oximetry 97 99 Oxygen Delivery [facility] Hospitalist - H&P: Result Labs Labs: Short CBC 09/15/23 Range/Units 21:47 WBC 4.59 (4.50-11.00) K/uL Hgb 12.1 (12.0-16.0) gm/dL Hct 37.5 (33.0-51.0) % Plt Count 232 (140-440) K/uL BMP 09/15/23 21:47 Sodium 135 Potassium 3.8 Chloride 106 Carbon Dioxide 25 BUN 15 Creatinine 0.6 Glucose 125 H Calcium 8.9 Liver Function 09/15/23 Range/Units 21:47 Total Bilirubin 0.1 (0.1-1.5) mg/dL AST 25 (12-35) U/L ALT 15 (4-35) U/L Alkaline Phosphatase 58 (40-150) U/L Albumin 4.0 (3.3-5.0) g/dL Urine 09/15/23 Range/Units 22:44 Urine Color Yellow (Yellow) Urine Appearance Clear (Clear) Urine pH 8.0 (5.0-8.5) Ur Specific [place] 1.015 (1.000-1.030) Urine Protein Negative (Negative) Urine Glucose (UA) Negative (Negative) Assessment and Plan Assessment and plan (1) Hypothyroidism: Problem comment: levothyroxine, unclear dose Status: Acute (2) Mild depression: Problem comment: fluoxetine, unclear dose - need med rec Status: Acute (3) Dizziness: Problem comment: -likely vestibular in nature; need to r/o posterior circulation CVA -CTA and CT neg -aspirin given in the ED, continue daily 81mg aspirin -Hypertension which apparently is new is notable -MR Brain tomorrow; consider ECHO, neuro f/u bedside and outpatient -OT to evaluate Status: Acute (4) Hypertension: Problem comment: -permissive htn is appropriate for now -call MD for 215/110 or higher -monitor neuro status q1h x 2, then q2h x 2, then q4 Status: Acute
[2023-09-15 23:16] LABS: Bacteria Urine Few; RBC Urine 0-2 (0-2); Squamous Epithelial Cell Urine Few (None-Few)
[2023-09-15 23:31] LABS: Troponin I* < 0.01 ng/mL (0.01-0.04)
[2023-09-16] VITALS (9 sets, daily range): BP systolic 134–201; BP diastolic 75–90; PULSE 57–82; RESP 14–18; TEMP 36.4–36.5; O2SAT 96–98
--- NOTE | 2023-09-16 07:30 | PC.NURSE ---
Pt alert and oriented x3. Afebrile. Pt denies pain, chest pain, N/V, and SOB. All for extremities are equal in strength and facial movements are symmetrical and controlled. Pt is up SBA with gait belt and slept intermittently throughout night.
[2023-09-16 07:44] LABS: Amphetamine Screen Urine Negative (Negative); Barbiturate Screen Urine Negative (Negative); Benzodiazepines Screen Urine Negative (Negative); Cannabinoid Screen Urine Negative (Negative); Cocaine Screen Urine Negative (Negative); Methadone Screen Urine Negative (Negative); Methamphetamines Screen Urine Negative (Negative); Opiate Screen Urine Negative (Negative); Oxycodone Screen Urine Negative (Negative); Phencyclidine Screen Urine Negative (Negative); Tricyclic Antidepressant Urine Negative (Negative)
[2023-09-16 07:52] LABS: Ethanol* < 0.01 % (0.01-0.03)
--- NOTE | 2023-09-16 08:50 | PC.NURSE ---
END OF SHIFT NOTE: PT PLEASANT AND COOPERATIVE. A&Ox4. DENIES CP, SOB, N/V. AMBULATES WITH SBA D/T DIZZINESS. ON RA; AFEBRILE; HYPERTENSIVE 201/100, 201/79; AWARE. NEURO CHECKS UNREMARKABLE. BED ALARM ON AND CALL LIGHT WITHIN PT?S REACH.?
--- NOTE | 2023-09-16 09:00 | CRLHL7_ITS ---
For Patients: As a result of the Century Cures Act, medical imaging exams and procedure reports are released immediately into your electronic medical record. You may view this report before your referring provider. If you have questions, please contact your health care provider. INDICATION: Dizziness. TECHNIQUE: Multiplanar multisequence noncontrast MR images of the brain. Comparison CT brain 09/15/2023. FINDINGS: Motion artifact degrades the FLAIR sequence. Minimal diffuse cerebral volume loss. No mass effect or midline shift. Scattered FLAIR hyperintensities in the supratentorial white matter and julissa, typical for mild chronic microvascular ischemic changes. No diffusion restriction to suggest acute infarction. No intracranial hemorrhage or pathologic extra-axial fluid collection. The major arterial flow voids at the skull base are preserved. Globes are symmetric. Mild moderate opacification of the left ethmoid air cells. Trace mastoid fluid bilaterally. IMPRESSION: 1. No acute infarction, mass effect, or intracranial hemorrhage. 2. Mild chronic microvascular ischemic changes. Dictated by Socrates Ernst MD @ 09/16/2023 10:52:00 AM (Electronically Signed)
[2023-09-16] MEDS: ASPIRIN 81 MG TABLET EC PO (09:04)
[2023-09-16] MEDS: SODIUM CHLORIDE 0.9 % (FLUSH) 10 ML SYRINGE 5 ML IVF (09:04)
--- NOTE | 2023-09-16 14:05 | PC.NURSE ---
Discharge: Patient pleasant and cooperative. Up SBA/independently in room. Vitals stable and WNL. Tolerating regular diet at time of discharge, denies nausea or dizziness. MRI completed, MD in room to discuss results with patient. IV removed with catheter intact. Discharge instructions given, discussed new medication order and informed patient she will need to make own follow up appointment. Patient discharged via wheelchair @ [id number].
--- NOTE | 2023-09-16 15:32 | P.DS_ITS ---
DS: Providers Provider Date Seen: 09/16/23 Date of admission: 09/15/23 23:18 Primary care physician: Not a Local Provider Admitting Clinician: Johanna Benton MD Consults: 09/15/23 23:25 Consult to Occupational Therapy [CONS] Routine Comment: Reason(s) for OT Consult:: Evaluate and Treat Any Restrictions?:: No Restrictions Attending Physician on discharge: Vlad Johnson MD Date of Discharge: 09/16/23 DS: Diagnosis Discharge Diagnosis (1) Dizziness: Status: Acute Problem details: -transient and resolved vertigo, remaining stable the last 10-12 hours of her hospital stay from 09/14-09/16/23. -CTA and CT neg -aspirin given in the ED, continue daily 81mg aspirin -Hypertension which apparently is new is notable will need follow-up in outpatient setting -MR Brain on 09/16/23 demonstrated only chronic, mild microvascular ischemic changes -consider ECHO as outpatient -OT assessment while in hospital on 09/16/23 demonstrated no spontaneous or inducible component (2) Cerebral microvascular disease: Status: Acute Problem details: - Chronic, mild per MRI of head on 09/16/2023 (3) Hypertension: Status: Acute Problem details: -permissive htn is appropriate for now -call MD for 215/110 or higher -monitor neuro status q1h x 2, then q2h x 2, then q4 (4) Essential hypertension: Status: Acute Problem details: - end-organ damage with cerebral microvascular ischemic changes and CKD stage III-A - 09/16/2023: start lisinopril 5 mg po daily given associated CKD III-A - F/u with PCP and consider additional treatment options to achieve safe BP control (5) CKD stage 3a, GFR 45-59 ml/min: Status: Acute (6) Mild depression: Status: Acute Problem details: fluoxetine, unclear dose - need med rec (7) Hypothyroidism: Status: Acute Problem details: levothyroxine, unclear dose DS: Summary Hospital Course Hospital Course: Admission history of present illness: ?73 y/o WFwith a hx of hypothyroidism and mild depression [place]. She states she had 2 acute events today that were similar in nature. She describes the onset of dizziness/movement sensation with diaphoresis and nausea. No slurring of words or weakness specific to any body part noted. No headache, visual changes or chest pain. No tingling. No hx of stroke/TIA or HTN. Did arrive hypertensive however (203/94). She was able to drive herself from the venue to our hospital. She lives in [facility] and is in town for the weekend. She states if she looks straight ahead she is less dizzy. No recent illness. However she states she has had COVID contacts. No fever chills or rash. No recent travel outside the [facility]. She lives alone. 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 She is . She has 1 adult son who lives in [place]. He is her emergency contact. Patient has remained asymptomatic since admission to the hospital floor. No spontaneous or inducible nystagmus or vertigo. MR of the head demonstrated no acute intracerebral infarction, but did demonstrate chronic mild microvascular ischemic changes in the white matter. With the end organ damage noted in the brain and in the kidneys we concluded that patient needed to initiate antihypertensive therapy and have follow-up with her primary care physician which he is agreeable to. The etiology of the transient dizziness that she had is not known at this time. She may require additional consultation with her primary care physician. Status at Discharge Functional status at discharge: independent ambulation Overall status at discharge: patient is back to baseline Time Spent with Patient Time attestation: Total time spent providing and/or coordinating discharge services: Time spent: Greater than 30 minutes Exam Narrative: Exam Narrative: I examined patient in her hospital room and on the medical floor. Appears comfortable no acute distress. Vision and hearing are adequate. Alert and oriented x4. Friendly, articulate and cooperative. No spontaneous or inducible nystagmus. No ataxia. No focal motor neurologic deficits. Cranial nerves 3-12 grossly normal. Independent in transfer, station, and gait. Const: Vital Signs, click to edit/add: Vital Signs - 24 hr 09/15/23 21:05 09/15/23 21:14 09/15/23 21:15 Temperature 97.6 F Pulse Rate 58 L 57 L Pulse Rate [Pulse Oximeter] 62 Pulse Rate [orthos tatic lying Pulse Oximeter] Pulse Rate [orthos tatic sitting Puls e Oximeter] Pulse Rate [orthos tatic standing Pul se Oximeter] Respiratory Rate 18 Blood Pressure Blood Pressure [Le ft Arm] Blood Pressure [Ri ght Upper Arm] 201/94 H Blood Pressure [or thostatic lying Le ft Arm] Blood Pressure [or thostatic sitting Left Arm] Blood Pressure [or thostatic standing Left Arm] Pulse Oximetry 100 100 100 Oxygen Delivery Me thod Room Air 09/15/23 21:30 09/15/23 21:57 09/15/23 22:00 Temperature Pulse Rate 56 L 62 64 Pulse Rate [Pulse Oximeter] Pulse Rate [orthos tatic lying Pulse Oximeter] Pulse Rate [orthos tatic sitting Puls e Oximeter] Pulse Rate [orthos tatic standing Pul se Oximeter] Respiratory Rate Blood Pressure 200/88 H Blood Pressure [Le ft Arm] Blood Pressure [Ri ght Upper Arm] Blood Pressure [or thostatic lying Le ft Arm] Blood Pressure [or thostatic sitting Left Arm] Blood Pressure [or thostatic standing Left Arm] Pulse Oximetry 100 99 99 Oxygen Delivery Ks thod 09/15/23 22:01 09/15/23 22:15 09/15/23 22:30 Temperature Pulse Rate 64 63 65 Pulse Rate [Pulse Oximeter] Pulse Rate [orthos tatic lying Pulse Oximeter] Pulse Rate [orthos tatic sitting Puls e Oximeter] Pulse Rate [orthos tatic standing Pul se Oximeter] Respiratory Rate Blood Pressure Blood Pressure [Le ft Arm] Blood Pressure [Ri ght Upper Arm] Blood Pressure [or thostatic lying Le ft Arm] Blood Pressure [or thostatic sitting Left Arm] Blood Pressure [or thostatic standing Left Arm] Pulse Oximetry 98 97 99 Oxygen Delivery Me thod 09/15/23 22:38 09/15/23 22:43 09/15/23 22:45 Temperature Pulse Rate 79 64 Pulse Rate [Pulse Oximeter] Pulse Rate [orthos tatic lying Pulse Oximeter] Pulse Rate [orthos tatic sitting Puls e Oximeter] Pulse Rate [orthos tatic standing Pul se Oximeter] Respiratory Rate Blood Pressure 203/90 H Blood Pressure [Le ft Arm] Blood Pressure [Ri ght Upper Arm] Blood Pressure [or thostatic lying Le ft Arm] Blood Pressure [or thostatic sitting Left Arm] Blood Pressure [or thostatic standing Left Arm] Pulse Oximetry 97 99 Oxygen Delivery Me thod 09/15/23 23:00 09/15/23 23:08 09/15/23 23:23 Temperature 97.7 F Pulse Rate 61 Pulse Rate [Pulse Oximeter] 69 Pulse Rate [orthos tatic lying Pulse Oximeter] Pulse Rate [orthos tatic sitting Puls e Oximeter] Pulse Rate [orthos tatic standing Pul se Oximeter] Respiratory Rate 18 16 Blood Pressure Blood Pressure [Le ft Arm] 201/100 H Blood Pressure [Ri ght Upper Arm] Blood Pressure [or thostatic lying Le ft Arm] Blood Pressure [or thostatic sitting Left Arm] Blood Pressure [or thostatic standing Left Arm] Pulse Oximetry 96 99 Oxygen Delivery Me thod Room Air 09/15/23 23:23 09/15/23 23:25 09/15/23 23:25 Temperature Pulse Rate 64 Pulse Rate [Pulse Oximeter] Pulse Rate [orthos tatic lying Pulse Oximeter] Pulse Rate [orthos tatic sitting Puls e Oximeter] Pulse Rate [orthos tatic standing Pul se Oximeter] Respiratory Rate 16 16 Blood Pressure Blood Pressure [Le ft Arm] Blood Pressure [Ri ght Upper Arm] Blood Pressure [or thostatic lying Le ft Arm] Blood Pressure [or thostatic sitting Left Arm] Blood Pressure [or thostatic standing Left Arm] Pulse Oximetry 99 99 Oxygen Delivery Me thod Room Air Room Air 09/15/23 23:25 09/16/23 00:57 09/16/23 02:08 Temperature 97.7 F Pulse Rate Pulse Rate [Pulse Oximeter] 69 57 L 59 L Pulse Rate [orthos tatic lying Pulse Oximeter] Pulse Rate [orthos tatic sitting Puls e Oximeter] Pulse Rate [orthos tatic standing Pul se Oximeter] Respiratory Rate 16 Blood Pressure Blood Pressure [Le ft Arm] 201/100 H Blood Pressure [Ri ght Upper Arm] Blood Pressure [or thostatic lying Le ft Arm] Blood Pressure [or thostatic sitting Left Arm] Blood Pressure [or thostatic standing Left Arm] Pulse Oximetry 99 Oxygen Delivery Me thod Room Air 09/16/23 02:15 09/16/23 04:03 09/16/23 06:00 Temperature Pulse Rate Pulse Rate [Pulse Oximeter] 62 67 71 Pulse Rate [orthos tatic lying Pulse Oximeter] Pulse Rate [orthos tatic sitting Puls e Oximeter] Pulse Rate [orthos tatic standing Pul se Oximeter] Respiratory Rate 14 Blood Pressure Blood Pressure [Le ft Arm] 201/79 H Blood Pressure [Ri ght Upper Arm] Blood Pressure [or thostatic lying Le ft Arm] Blood Pressure [or thostatic sitting Left Arm] Blood Pressure [or thostatic standing Left Arm] Pulse Oximetry 98 Oxygen Delivery Me thod Room Air 09/16/23 07:00 09/16/23 07:00 09/16/23 08:00 Temperature 97.6 F Pulse Rate Pulse Rate [Pulse Oximeter] 57 L 65 Pulse Rate [orthos tatic lying Pulse Oximeter] Pulse Rate [orthos tatic sitting Puls e Oximeter] Pulse Rate [orthos tatic standing Pul se Oximeter] Respiratory Rate 14 Blood Pressure Blood Pressure [Le ft Arm] 166/75 H Blood Pressure [Ri ght Upper Arm] Blood Pressure [or thostatic lying Le ft Arm] Blood Pressure [or thostatic sitting Left Arm] Blood Pressure [or thostatic standing Left Arm] Pulse Oximetry 96 96 Oxygen Delivery Ks thod Room Air 09/16/23 08:00 09/16/23 08:39 09/16/23 11:00 Temperature 97.7 F Pulse Rate 57 L Pulse Rate [Pulse Oximeter] 74 Pulse Rate [orthos tatic lying Pulse Oximeter] 65 Pulse Rate [orthos tatic sitting Puls e Oximeter] 66 Pulse Rate [orthos tatic standing Pul se Oximeter] 82 Respiratory Rate 18 Blood Pressure Blood Pressure [Le ft Arm] 181/77 H Blood Pressure [Ri ght Upper Arm] Blood Pressure [or thostatic lying Le ft Arm] 166/75 H Blood Pressure [or thostatic sitting Left Arm] 164/81 H Blood Pressure [or thostatic standing Left Arm] 134/90 H Pulse Oximetry 96 Oxygen Delivery Ks thod Room Air DS: Data Data Completed and Pending Labs on day of discharge: Labs from last 24 hours 09/15/23 09/15/23 09/15/23 23:25 22:44 21:47 WBC 4.59 RBC 4.01 Hgb 12.1 Hct 37.5 MCV 94 MCH 30 MCHC 32 RDW Coeff of Chris 12.5 Plt Count 232 Neut % (Auto) 55.8 Lymph % (Auto) 27.2 [place] % (Auto) 10.2 Eos % (Auto) 5.0 Baso % (Auto) 1.1 Neut # (Auto) 2.56 Lymph # (Auto) 1.25 [place] # (Auto) 0.50 Eos # (Auto) 0.23 Baso # (Auto) 0.05 Abs Immat Gran (auto) 0.03 Imm/Tot Granulo (auto) 0.7 Sodium 135 Potassium 3.8 Chloride 106 Carbon Dioxide 25 Anion Gap 4 L BUN 15 Creatinine 0.6 Estimated Creat Clear 48.72 Estimated GFR 95 Glucose 125 H Calcium 8.9 Total Bilirubin 0.1 AST 25 ALT 15 Alkaline Phosphatase 58 Troponin I < 0.01 L C-Reactive Protein < 0.5 L Total Protein 6.6 Albumin 4.0 TSH 3.860 Urine Color Yellow Urine Appearance Clear Urine pH 8.0 Ur Specific [place] 1.015 Urine Protein Negative Urine Glucose (UA) Negative Urine Ketones Negative Urine Blood Negative Urine Nitrite Negative Urine Bilirubin Negative Urine Urobilinogen 0.2 Ur Leukocyte Esterase Trace A Urine RBC 0-2 Urine WBC 2-5 Ur Squamous Epith Cells Few Urine Bacteria Few A Urine Opiates Screen Negative Ur Oxycodone Screen Negative Urine Methadone Screen Negative Ur Barbiturates Screen Negative U Tricyclic Antidepress Negative Ur Phencyclidine Scrn Negative Ur Amphetamines Screen Negative U Methamphetamines Scrn Negative U Benzodiazepines Scrn Negative Urine Cocaine Screen Negative U Marijuana (THC) Screen Negative Ur Drug Screen Comment See Note Ethyl Alcohol < 0.01 L SARS-CoV-2 (PCR) Influenza Type A (PCR) Influenza Type B (PCR) RSV (PCR) Lab Acknowledgement Test Added Test Added 09/15/23 21:46 WBC RBC Hgb Hct MCV MCH MCHC RDW Coeff of Chris Plt Count Neut % (Auto) Lymph % (Auto) [place] % (Auto) Eos % (Auto) Baso % (Auto) Neut # (Auto) Lymph # (Auto) [place] # (Auto) Eos # (Auto) Baso # (Auto) Abs Immat Gran (auto) Imm/Tot Granulo (auto) Sodium Potassium Chloride Carbon Dioxide Anion Gap BUN Creatinine Estimated Creat Clear Estimated GFR Glucose Calcium Total Bilirubin AST ALT Alkaline Phosphatase Troponin I C-Reactive Protein Total Protein Albumin TSH Urine Color Urine Appearance Urine pH Ur Specific [place] Urine Protein Urine Glucose (UA) Urine Ketones Urine Blood Urine Nitrite Urine Bilirubin Urine Urobilinogen Ur Leukocyte Esterase Urine RBC Urine WBC Ur Squamous Epith Cells Urine Bacteria Urine Opiates Screen Ur Oxycodone Screen Urine Methadone Screen Ur Barbiturates Screen U Tricyclic Antidepress Ur Phencyclidine Scrn Ur Amphetamines Screen U Methamphetamines Scrn U Benzodiazepines Scrn Urine Cocaine Screen U Marijuana (THC) Screen Ur Drug Screen Comment Ethyl Alcohol SARS-CoV-2 (PCR) Negative SARS-CoV-2 Influenza Type A (PCR) Negative PCR FLU A Influenza Type B (PCR) Negative PCR FLU B RSV (PCR) Negative PCR RSV Lab Acknowledgement Preliminary micro results at discharge 09/15/23 22:44 Urine Culture - Preliminary Urine,Clean Catch Culture in Progress Imaging MRI - head: Attestation: I have reviewed the pertinent imaging results. Radiologist's impression: 1. No acute infarction, mass effect, or intracranial hemorrhage. 2. Mild chronic microvascular ischemic changes. CT scan - head: Radiologist's impression: No acute intra cerebral abnormalities on CT scan of the head. CT angiogram of head and neck demonstrated no acute abnormalities or vascular concerns. Discharge Plan Discharge Disposition: Home, Self-Care Date of Admission: 09/15/23 23:18 Attending Provider on Discharge: Vlad Johnson Primary Care Provider: Provider,Not a Local Condition: Improved Anticipated Discharge Date/Time: 09/16/23 14:14 Discharge Medications: New lisinopril 5 mg tablet 5 mg PO DAILY Qty: 30 2RF Continued aspirin 81 mg capsule 81 mg PO DAILY fluvoxamine 100 mg tablet 150 mg PO DAILY levothyroxine 50 mcg tablet 50 mcg PO DAILY Discharge Orders: Discharge Order (Routine); Ordered 09/16/23 Ordered By: Vlad Johnson Patient Education: Lisinopril (By mouth), Chronic Kidney Disease Diet (GEN), Chronic Hypertension (DC), Low-Sodium Diet (DC), Impaired Kidney Function (DC) Activity Level: No Restrictions and Activity as Tolerated Discharge Diet: 2 gm Sodium and Renal Follow Up Appointments: Provider,Not a Local [Primary Care Provider] - ( Follow up with Dr. Sarah Tong in 1-2 weeks, sooner if needed. Patient to call and make appointment.) Forms: [facility] Info Instructions
== END 2023-09-16 14:06 | disposition home or self-care (01) ==
LOC: ED 22:39 → MEDSURG 23:19
PROVIDERS: Admitting Provider Family Medicine; Emergency Provider Family Medicine; Visit Provider Family Medicine
DX: I10 Essential (primary) hypertension (principal); R82.90 Unspecified abnormal findings in urine; R42 Dizziness and giddiness
CPT/HCPCS: 36415; 70450; 70496; 70498; 70551; 80053; 80306; 81001; 82077; 84443; 84484; 85025; 86140; 87086; 87631; 93005; 94761; 96361; 96374; 97165; 99284; 99285; G0378; A9270; J1200; J7030; Q9967